=== PATIENT | female | born 1960 | race Two or more races ===

== ENCOUNTER 2016-11-30 11:35 | Inpatient (IN) | payer MEDICAID ==
[~2016-11-30] VITALS: Ht 167.6 cm; Wt 140.7 kg
[2016-11-30] VITALS (9 sets, daily range): BP systolic 89–114; BP diastolic 34–77
[2016-11-30] MEDS: InsuLIN REG 1unit/0.01ml Soln (100units/ml) SC SCH (00:59)
[2016-11-30] MEDS: ACCU-CHEK COMFORT CURVE STRIP VI SCH (00:59)
[~2016-11-30 11:35] MED LIST: ATOR20TA50 PO; CLOP75TA28 PO; FAM20T PO; GLIP-116 PO; LISI2.5T47 PO; MET25T PO
[2016-11-30 12:43] LABS: Basophils # (auto) 0 uL; DEFINITIVE VIEW TRANSMISSION; Eosinophils # (auto) 0 uL; Hemoglobin 9.6 g/dL (12.2-16.2); Lymphocytes # (auto) 0.1 uL; Mean Corpuscular Hemoglobin 26.7 pg (28.0-32.0); Monocytes # (auto) 0.1 uL; Neutrophils % (auto) 97.6 % (37.0-80.0); SUSPECT VIEW TRANSMISSION; White Blood Cell 8.2 10^3/uL (4.4-10.8)
[2016-11-30] MEDS ORDERED: SODIUM CHLORIDE 0.9% 1,000 ML IV ONE (12:45)
[2016-11-30] MEDS ORDERED: InsuLIN REG 1unit/0.01ml Soln (100units/ml) IV ONE (12:45)
[2016-11-30 12:47] LABS: Eosinophils % (auto) 0.1 % (0.0-7.0); Hematocrit 29.1 % (36.0-46.0); Lymphocytes % (auto) 1.5 % (10.0-50.0); Mean Corpuscular Hgb Conc. 33.1 g/dL (32.0-36.0); Mean Corpuscular Volume 80.8 fL (80.0-100.0); Mean Platelet Volume 7.6 fL (7.4-10.4); Monocytes % (auto) 0.8 % (0.0-12.0); Platelet Count (auto) 336 10^3/uL (140-450); Red Cell Distribution Width 15.8 % (11.6-16.0)
[2016-11-30 13:00] LABS: Albumin 2.1 g/dL (3.4-5.0); Anion Gap 10 (5-15); Aspartate Aminotransferase 18 U/L (15-37); BUN/Creatinine Ratio 16.8; Blood Urea Nitrogen 18 mg/dL (7-18); Calcium 8.1 mg/dL (8.5-10.1); Carbon Dioxide 26 mmol/L (21-32); Chloride 102 mmol/L (98-107); GFR African American 68 mL/min; GFR Non-African American 56 mL/min; Magnesium 1.8 mg/dL (1.6-2.6); Sodium 138 mmol/L (136-145); Total Protein 7.7 g/dL (6.4-8.2)
[2016-11-30 13:04] LABS: Lactic Acid w/Reflex 3.3 mmol/L (0.4-2.0)
[2016-11-30 13:04] LABS: Alkaline Phosphatase 120 U/L (45-117); Bilirubin, Total 0.7 mg/dL (0.2-1.0)
[2016-11-30 13:10] LABS: Glucose 422 mg/dL (74-106); Potassium 2.6 mmol/L (3.5-5.1)
[2016-11-30] MEDS ORDERED: ACETAMINOPHEN 325 MG TAB PO ONE (13:30)
[2016-11-30 13:32] LABS: B-Type Natriuretic Peptide 68.11 pg/mL (0-100)
[2016-11-30 13:32] LABS: REFLEX LACTIC ACID YES OR NO YES
[2016-11-30] MEDS: POTASSIUM CHL 20MEQ/100ML 100 ML IV SCH ×3 (14:33→20:06)
[2016-11-30] MEDS ORDERED: LEVOFLOXACIN 500MG 100 ML IV ONE ×2 (15:00→17:45)
[2016-11-30] MEDS ORDERED: VANCOMYCIN 1GM/250ML D5W 250 ML IV ONE (15:00)
[2016-11-30] MEDS ORDERED: SODIUM CHLORIDE 0.9% 2,000 ML IV ONE (15:45)
[2016-11-30 17:27] LABS: Urine Bilirubin Negative (Negative); Urine Ketone TRACE (Negative); Urine Nitrite Negative (Negative); Urine RBC 8 /hpf (0 - 4); Urine Urobilinogen Normal (Negative)
[2016-11-30] MEDS ORDERED: SODIUM CHLORIDE 0.9% 1,000 ML IV SCH (17:41)
[2016-11-30 17:42] LABS: Urine Blood 3+ /uL (Negative); Urine Color Brown (Yellow); Urine Glucose 4+ mg/dL (Normal)
[2016-11-30] MEDS ORDERED: DOCUSATE SOD 100 MG CAP PO PRN (17:45)
[2016-11-30] MEDS ORDERED: LORazepam 0.5 MG TAB PO PRN (17:45)
[2016-11-30] MEDS ORDERED: MORPHINE SULF INJ 2 MG/ML SYRINGE 1ML IV PRN ×2 (17:45)
[2016-11-30] MEDS ORDERED: ACETAMINOPHEN 325 MG TAB PO PRN (17:45)
[2016-11-30] MEDS ORDERED: HYDROcodone-ACET 5/325MG TAB PO PRN (17:45)
[2016-11-30] MEDS ORDERED: ONDANSETRON HCL 4 MG/2 ML VIAL IV PRN (17:45)
[2016-11-30] MEDS ORDERED: NITROGLYCERIN 0.4 MG SL TAB SL PRN (17:45)
[2016-11-30] MEDS ORDERED: DEXTROSE (50%) 50ML SYRG IV PRN (17:45)
[2016-11-30] MEDS ORDERED: ALUM & MAG HYDROX-SIMETH LIQ(MAALOX) 30 ML PO PRN (17:45)
[2016-11-30] MEDS ORDERED: CLOPIDOGREL BISULFATE 75 MG TAB PO ONE (18:00)
[2016-11-30] MEDS ORDERED: LISINOPRIL 5 MG TAB PO ONE (18:00)
[2016-11-30] MEDS: SODIUM CHLORIDE 0.9% 1,000 ML IV SCH (19:03)
[2016-11-30] MEDS: NOREPINEPHRINE BITARTRATE 250 ML IV SCH (20:48)
[2016-11-30] MEDS: METOPROLOL TARTRATE 25 MG TAB PO SCH (22:00)
[2016-11-30] MEDS: ATORVASTATIN 20 MG TAB PO SCH (22:00)
[2016-11-30] MEDS ORDERED: BACL20TA PO (22:33)
[2016-11-30] MEDS ORDERED: HYDR-3995 PO (22:33)
[2016-11-30] MEDS ORDERED: DIME240C OR (22:33)
[2016-12-01] VITALS (86 sets, daily range): BP systolic 73–160; BP diastolic 21–109
[2016-12-01] MEDS ORDERED: PNEUMOCOCCAL VACC POLYS 25 MCG/0.5 ML VIAL SUBCUT ONE (00:15)
[2016-12-01 02:19] LABS: Basophils # (auto) 0 uL; DEFINITIVE VIEW TRANSMISSION; Eosinophils # (auto) 0 uL; Eosinophils % (auto) 0.1 % (0.0-7.0); Hematocrit 39.2 % (36.0-46.0); Hemoglobin 12.7 g/dL (12.2-16.2); Lymphocytes # (auto) 0.2 uL; Lymphocytes % (auto) 2.9 % (10.0-50.0); Mean Corpuscular Hemoglobin 26.2 pg (28.0-32.0); Mean Corpuscular Hgb Conc. 32.5 g/dL (32.0-36.0); Mean Corpuscular Volume 80.5 fL (80.0-100.0); Mean Platelet Volume 7.4 fL (7.4-10.4); Monocytes # (auto) 0.4 uL; Monocytes % (auto) 5.1 % (0.0-12.0); Neutrophils # (auto) 6.6 uL; Neutrophils % (auto) 91.9 % (37.0-80.0); Platelet Count (auto) 250 10^3/uL (140-450); Red Cell Distribution Width 16.4 % (11.6-16.0); White Blood Cell 7.2 10^3/uL (4.4-10.8)
[2016-12-01 02:30] LABS: Albumin 1.8 g/dL (3.4-5.0); BUN/Creatinine Ratio 17.4; Calcium 7.8 mg/dL (8.5-10.1); Potassium 3.1 mmol/L (3.5-5.1)
[2016-12-01 02:32] LABS: Bilirubin, Total 0.3 mg/dL (0.2-1.0); Lactic Acid w/Reflex 2.7 mmol/L (0.4-2.0)
[2016-12-01 03:07] LABS: REFLEX LACTIC ACID YES OR NO YES
[2016-12-01] MEDS: SODIUM CHLORIDE 0.9% 1,000 ML IV SCH ×2 (05:00→17:00)
[2016-12-01] MEDS: InsuLIN REG 1unit/0.01ml Soln (100units/ml) SC SCH ×4 (06:44→21:38)
[2016-12-01] MEDS: ACCU-CHEK COMFORT CURVE STRIP VI SCH ×4 (07:00→21:31)
[2016-12-01] MEDS: POTASSIUM CHL 20MEQ/100ML 100 ML IV SCH ×2 (08:30→10:21)
[2016-12-01] MEDS ORDERED: PATIENTS OWN MEDICATION (Lisinopril 5 MG) PO SCH ×2 (10:00)
[2016-12-01] MEDS: METOPROLOL TARTRATE 25 MG TAB PO SCH ×2 (10:00→21:31)
[2016-12-01] MEDS: LISINOPRIL 5 MG TAB PO SCH (10:00)
[2016-12-01] MEDS: FAMOTIDINE 20 MG TAB PO SCH (10:41)
[2016-12-01] MEDS: CLOPIDOGREL BISULFATE 75 MG TAB PO SCH (10:41)
[2016-12-01] MEDS: LEVOFLOXACIN 500MG 100 ML IV SCH (10:42)
[2016-12-01] MEDS: HYDROcodone-ACET 5/325MG TAB PO PRN ×2 (12:00→21:44)
[2016-12-01] MEDS: NOREPINEPHRINE BITARTRATE 250 ML IV SCH (19:46)
[2016-12-01] MEDS: ATORVASTATIN 20 MG TAB PO SCH (21:30)
[2016-12-02] VITALS (61 sets, daily range): BP systolic 98–155; BP diastolic 50–81
[2016-12-02] MEDS: SODIUM CHLORIDE 0.9% 1,000 ML IV SCH ×3 (02:19→21:00)
[2016-12-02 04:11] LABS: Basophils # (auto) 0 uL; Basophils % (auto) 0.1 % (0.0-2.0); DEFINITIVE VIEW TRANSMISSION; Eosinophils # (auto) 0.1 uL; Eosinophils % (auto) 1.3 % (0.0-7.0); Hematocrit 23.6 % (36.0-46.0); Hemoglobin 7.8 g/dL (12.2-16.2); Lymphocytes # (auto) 0.4 uL; Lymphocytes % (auto) 9.1 % (10.0-50.0); Mean Corpuscular Hemoglobin 26.4 pg (28.0-32.0); Mean Corpuscular Hgb Conc. 32.8 g/dL (32.0-36.0); Mean Corpuscular Volume 80.6 fL (80.0-100.0); Mean Platelet Volume 7.3 fL (7.4-10.4); Monocytes # (auto) 0.4 uL; Monocytes % (auto) 8.5 % (0.0-12.0); Neutrophils # (auto) 3.8 uL; Platelet Count (auto) 286 10^3/uL (140-450); Red Cell Distribution Width 16.5 % (11.6-16.0); White Blood Cell 4.7 10^3/uL (4.4-10.8)
[2016-12-02 04:38] LABS: BUN/Creatinine Ratio 16.1; Calcium 7.7 mg/dL (8.5-10.1)
[2016-12-02 05:57] LABS: Anisocytosis Slight; Ovalocytes FEW; Platelet Estimate Adequate
[2016-12-02] MEDS: InsuLIN REG 1unit/0.01ml Soln (100units/ml) SC SCH ×4 (06:00→23:00)
[2016-12-02] MEDS: ACCU-CHEK COMFORT CURVE STRIP VI SCH ×4 (06:01→22:22)
[2016-12-02 07:04] LABS: Basophils # (auto) 0 uL; Basophils % (auto) 0.2 % (0.0-2.0); DEFINITIVE VIEW TRANSMISSION; Eosinophils # (auto) 0.1 uL; Eosinophils % (auto) 1.6 % (0.0-7.0); Hematocrit 24.2 % (36.0-46.0); Hemoglobin 7.8 g/dL (12.2-16.2); Lymphocytes # (auto) 0.5 uL; Lymphocytes % (auto) 11.3 % (10.0-50.0); Mean Corpuscular Hemoglobin 26.3 pg (28.0-32.0); Mean Corpuscular Hgb Conc. 32.1 g/dL (32.0-36.0); Mean Corpuscular Volume 81.8 fL (80.0-100.0); Mean Platelet Volume 7.3 fL (7.4-10.4); Monocytes # (auto) 0.4 uL; Monocytes % (auto) 8.7 % (0.0-12.0); Neutrophils # (auto) 3.3 uL; Neutrophils % (auto) 78.2 % (37.0-80.0); Platelet Count (auto) 242 10^3/uL (140-450); SUSPECT VIEW TRANSMISSION; White Blood Cell 4.2 10^3/uL (4.4-10.8)
[2016-12-02 07:17] LABS: INR 0.98 (0.9-1.15); Partial Thromboplastin Time 20.5 sec (22.64-33.71); Prothrombin Time 10.7 sec (9.37-12.3)
[2016-12-02 07:41] LABS: Albumin 1.7 g/dL (3.4-5.0); Calcium 7.8 mg/dL (8.5-10.1); Potassium 3.1 mmol/L (3.5-5.1)
[2016-12-02 07:43] LABS: BUN/Creatinine Ratio 13.3
[2016-12-02 07:45] LABS: Bilirubin, Total 0.3 mg/dL (0.2-1.0); Total Protein 6.6 g/dL (6.4-8.2)
[2016-12-02 08:04] LABS: Hypochromia Slight; Platelet Estimate Adequate
[2016-12-02] MEDS: LEVOFLOXACIN 500MG 100 ML IV SCH (10:43)
[2016-12-02] MEDS: FAMOTIDINE 20 MG TAB PO SCH (10:43)
[2016-12-02] MEDS: POTASSIUM CHL 20MEQ/100ML 100 ML IV SCH ×2 (10:43→12:52)
[2016-12-02] MEDS: LISINOPRIL 5 MG TAB PO SCH (10:44)
[2016-12-02] MEDS: CLOPIDOGREL BISULFATE 75 MG TAB PO SCH (10:44)
[2016-12-02] MEDS: METOPROLOL TARTRATE 25 MG TAB PO SCH ×2 (10:45→22:16)
[2016-12-02] MEDS: HYDROcodone-ACET 5/325MG TAB PO PRN (10:45)
[2016-12-02] MEDS: PRO-STAT 64 30ML PO SCH (18:14)
[2016-12-02] MEDS: ATORVASTATIN 20 MG TAB PO SCH (22:15)
[2016-12-03 05:22] VITALS: BP 140/73
[2016-12-03] MEDS: ACCU-CHEK COMFORT CURVE STRIP VI SCH ×4 (06:50→22:43)
[2016-12-03] MEDS: InsuLIN REG 1unit/0.01ml Soln (100units/ml) SC SCH ×4 (06:54→22:43)
[2016-12-03] MEDS: SODIUM CHLORIDE 0.9% 1,000 ML IV SCH ×2 (07:00→16:37)
[2016-12-03] MEDS: PRO-STAT 64 30ML PO SCH ×2 (08:21→18:00)
[2016-12-03 08:39] VITALS: BP 151/88
[2016-12-03] MEDS: POTASSIUM CHL 20MEQ/100ML 100 ML IV SCH ×2 (10:59→11:52)
[2016-12-03] MEDS: FAMOTIDINE 20 MG TAB PO SCH (11:00)
[2016-12-03] MEDS: LEVOFLOXACIN 500MG 100 ML IV SCH (11:00)
[2016-12-03] MEDS: CLOPIDOGREL BISULFATE 75 MG TAB PO SCH (11:00)
[2016-12-03] MEDS: METOPROLOL TARTRATE 25 MG TAB PO SCH ×2 (11:01→22:42)
[2016-12-03] MEDS: LISINOPRIL 5 MG TAB PO SCH (11:02)
[2016-12-03 13:31] VITALS: BP 148/77
[2016-12-03 14:20] LABS: Basophils # (auto) 0 uL; Basophils % (auto) 0.4 % (0.0-2.0); DEFINITIVE VIEW TRANSMISSION; Eosinophils # (auto) 0 uL; Hematocrit 25.6 % (36.0-46.0); Hemoglobin 8.5 g/dL (12.2-16.2); Lymphocytes # (auto) 0.4 uL; Lymphocytes % (auto) 11.3 % (10.0-50.0); Mean Corpuscular Hemoglobin 26.6 pg (28.0-32.0); Mean Corpuscular Hgb Conc. 33.1 g/dL (32.0-36.0); Mean Corpuscular Volume 80.3 fL (80.0-100.0); Mean Platelet Volume 7.3 fL (7.4-10.4); Monocytes # (auto) 0.3 uL; Monocytes % (auto) 8.8 % (0.0-12.0); Neutrophils # (auto) 2.5 uL; Neutrophils % (auto) 78.5 % (37.0-80.0); Platelet Count (auto) 265 10^3/uL (140-450); Red Cell Distribution Width 15.7 % (11.6-16.0); White Blood Cell 3.1 10^3/uL (4.4-10.8)
[2016-12-03 14:35] LABS: BUN/Creatinine Ratio 10.3; Calcium 8.2 mg/dL (8.5-10.1); Magnesium 1.9 mg/dL (1.6-2.6); Potassium 3.6 mmol/L (3.5-5.1)
[2016-12-03 14:56] LABS: INR 1.01 (0.9-1.15)
[2016-12-03] MEDS: FLUCONAZOLE 200MG/100ML 100 ML IV SCH (16:12)
[2016-12-03 17:24] VITALS: BP 156/78
[2016-12-03] MEDS: ATORVASTATIN 20 MG TAB PO SCH (22:42)
[2016-12-04 00:01] VITALS: BP 149/66
[2016-12-04] MEDS: SODIUM CHLORIDE 0.9% 1,000 ML IV SCH ×2 (02:58→12:21)
[2016-12-04 04:58] VITALS: BP 134/85
[2016-12-04 05:33] VITALS: BP 144/80
[2016-12-04] MEDS: InsuLIN REG 1unit/0.01ml Soln (100units/ml) SC SCH ×2 (06:37→11:30)
[2016-12-04] MEDS: ACCU-CHEK COMFORT CURVE STRIP VI SCH ×2 (06:37→11:30)
[2016-12-04 06:51] LABS: Basophils # (auto) 0 uL; DEFINITIVE VIEW TRANSMISSION; Eosinophils # (auto) 0 uL; Eosinophils % (auto) 1.2 % (0.0-7.0); Hematocrit 25.1 % (36.0-46.0); Hemoglobin 8.1 g/dL (12.2-16.2); Lymphocytes # (auto) 0.5 uL; Lymphocytes % (auto) 14.5 % (10.0-50.0); Mean Corpuscular Hemoglobin 26.1 pg (28.0-32.0); Mean Corpuscular Hgb Conc. 32.4 g/dL (32.0-36.0); Mean Corpuscular Volume 80.6 fL (80.0-100.0); Mean Platelet Volume 7.4 fL (7.4-10.4); Monocytes # (auto) 0.4 uL; Monocytes % (auto) 11.2 % (0.0-12.0); Neutrophils # (auto) 2.6 uL; Neutrophils % (auto) 73.1 % (37.0-80.0); Platelet Count (auto) 253 10^3/uL (140-450); Red Cell Distribution Width 15.9 % (11.6-16.0); White Blood Cell 3.5 10^3/uL (4.4-10.8)
[2016-12-04 07:02] LABS: INR 1.02 (0.9-1.15); Partial Thromboplastin Time 24.7 sec (22.64-33.71); Prothrombin Time 11.1 sec (9.37-12.3)
[2016-12-04 07:18] LABS: Magnesium 1.7 mg/dL (1.6-2.6); Potassium 3.2 mmol/L (3.5-5.1)
[2016-12-04] MEDS: PRO-STAT 64 30ML PO SCH (08:09)
[2016-12-04 09:11] VITALS: BP 157/65
[2016-12-04] MEDS: LEVOFLOXACIN 500MG 100 ML IV SCH (10:25)
[2016-12-04] MEDS: METOPROLOL TARTRATE 25 MG TAB PO SCH (10:26)
[2016-12-04] MEDS: CLOPIDOGREL BISULFATE 75 MG TAB PO SCH (10:26)
[2016-12-04] MEDS: FAMOTIDINE 20 MG TAB PO SCH (10:26)
[2016-12-04] MEDS: LISINOPRIL 5 MG TAB PO SCH (10:27)
[2016-12-04] MEDS ORDERED: LEVO500T3 PO (12:11)
[2016-12-04] MEDS ORDERED: FLUC200T50 PO (12:11)
[2016-12-04] MEDS: FLUCONAZOLE 200MG/100ML 100 ML IV SCH (12:48)
[2016-12-04 13:00] VITALS: BP 148/78
== END 2016-12-04 16:55 | disposition hospice, home (50) | DRG 720 ==
LOC: EDBD 11:35 → EDSEX 11:35 → ER 11:44 → TELE 11:45 → ICU WEST 21:40 → TELE-CENTR 12-02 15:11
PROVIDERS: ADMIT Internal Medicine; ATTEND Internal Medicine
DX: A41.9 Sepsis, unspecified organism (principal); E43 Unspecified severe protein-calorie malnutrition; G92 Toxic encephalopathy; I95.9 Hypotension, unspecified; L89.893 Pressure ulcer of other site, stage 3; L89.159 Pressure ulcer of sacral region, unspecified stage; Z68.43 Body mass index [BMI] 50.0-59.9, adult; N39.0 Urinary tract infection, site not specified; E66.01 Morbid (severe) obesity due to excess calories; E11.9 Type 2 diabetes mellitus without complications; I10 Essential (primary) hypertension; B96.20 Unspecified Escherichia coli [E. coli] as the cause of diseases classified elsewhere; R65.20 Severe sepsis without septic shock; E78.5 Hyperlipidemia, unspecified; G35 Multiple sclerosis; E87.6 Hypokalemia; K21.9 Gastro-esophageal reflux disease without esophagitis; D64.9 Anemia, unspecified; Z51.5 Encounter for palliative care; B95.4 Other streptococcus as the cause of diseases classified elsewhere; B96.1 Klebsiella pneumoniae [K. pneumoniae] as the cause of diseases classified elsewhere; B96.4 Proteus (mirabilis) (morganii) as the cause of diseases classified elsewhere; S31.819A Unspecified open wound of right buttock, initial encounter; X58.XXXA Exposure to other specified factors, initial encounter; Y93.89 Activity, other specified; Y92.89 Other specified places as the place of occurrence of the external cause; Z74.01 Bed confinement status; Z82.49 Family history of ischemic heart disease and other diseases of the circulatory system; Z83.3 Family history of diabetes mellitus; Z86.73 Personal history of transient ischemic attack (TIA), and cerebral infarction without residual deficits; Z80.9 Family history of malignant neoplasm, unspecified; Z88.1 Allergy status to other antibiotic agents; Z88.5 Allergy status to narcotic agent; Z88.0 Allergy status to penicillin; Z88.8 Allergy status to other drugs, medicaments and biological substances; Y99.8 Other external cause status; Z71.89 Other specified counseling; Z23 Encounter for immunization
CPT/HCPCS: 36415; 51702; 70450; 71010; 80048; 80053; 80307; 80320; 81001; 82962; 83036; 83605; 83735; 83880; 84484; 85018; 85025; 85379; 85610; 85730; 87040; 87077; 87081; 87086; 87186; 87205; 87493; 93005; 93970; 96361; 96365; 96367; J1450; J1815; J1956; J3480

== ENCOUNTER 2017-12-29 18:03 | Inpatient (IN) | payer MEDICAID ==
[~2017-12-29] VITALS: Ht 165.1 cm; Wt 117.7 kg
[~2017-12-29 18:03] MED LIST changes: +BACL20TA PO; +DIME240C OR; +FLUC200T50 PO; +HYDR-3995 PO; +LEVO500T21 PO
[2017-12-29 19:06] LABS: Basophils # (auto) 0 uL; Basophils % (auto) 0.3 % (0.0-2.0); Eosinophils # (auto) 0.1 uL; Eosinophils % (auto) 0.9 % (0.0-7.0); Hematocrit 33.1 % (36.0-46.0); Hemoglobin 11.3 g/dL (12.2-16.2); Lymphocytes # (auto) 0.3 uL; Lymphocytes % (auto) 4.7 % (10.0-50.0); Mean Corpuscular Hemoglobin 28.9 pg (28.0-32.0); Mean Corpuscular Hgb Conc. 34.2 g/dL (32.0-36.0); Mean Corpuscular Volume 84.3 fL (80.0-100.0); Monocytes # (auto) 0.5 uL; Neutrophils # (auto) 5.4 uL; Neutrophils % (auto) 86.1 % (37.0-80.0); Nucleated Red Blood Cells % 0.1 %; Platelet Count (auto) 292 10^3/uL (140-450); Red Blood Cells 3.92 10^6/uL (4.0-5.20); Red Cell Distribution Width 15.5 % (11.8-14.3); White Blood Cell 6.2 10^3/uL (4.4-10.8)
[2017-12-29 19:30] LABS: Alanine Aminotransferase 11 U/L (13-56); Albumin 2.9 g/dL (3.4-5.0); Alkaline Phosphatase 83 U/L (45-117); Anion Gap 7 (5-15); Aspartate Aminotransferase 10 U/L (15-37); Bilirubin, Total 0.4 mg/dL (0.2-1.0); Blood Urea Nitrogen 11 mg/dL (7-18); Calcium 8.7 mg/dL (8.5-10.1); Carbon Dioxide 24 mmol/L (21-32); Chloride 104 mmol/L (98-107); GFR African American 190 mL/min; GFR Non-African American 157 mL/min; Glucose 153 mg/dL (74-106); Potassium 3.5 mmol/L (3.5-5.1); Sodium 135 mmol/L (136-145); Total Protein 8.4 g/dL (6.4-8.2)
[2017-12-29 21:24] LABS: Urine Bacteria MOD /hpf (None Seen); Urine Blood 2+ /uL (Negative); Urine Mucus FEW (None Seen); Urine WBC 3133 /hpf (0 - 5); Urine WBC Clumps PRESENT /hpf (None Seen)
[2017-12-29] MEDS ORDERED: SODIUM CHLORIDE 0.9% 1,000 ML IVB ONE (22:19)
[2017-12-29] MEDS ORDERED: cefTRIAXone 1GM/10ml IVPUSH 10 ML IV ONE (22:30)
[2017-12-29 22:52] LABS: INR 0.98 (0.9-1.15); Prothrombin Time 10.5 sec (9.27-12.13)
[2017-12-29] MEDS ORDERED: ACETAMINOPHEN 325 MG TAB PO PRN (23:15)
[2017-12-29] MEDS ORDERED: ONDANSETRON HCL 4 MG/2 ML VIAL IV PRN (23:15)
[2017-12-29] MEDS ORDERED: HYDROcodone-ACET 7.5/325MG TAB ONE (23:33)
[2017-12-29] MEDS: HYDROcodone-ACET 7.5/325MG TAB PO PRN (23:35)
[2017-12-30] MEDS ORDERED: LORazepam 2MG/ML-1ML VIAL ONE (04:15)
[2017-12-30] MEDS ORDERED: LORazepam 2MG/ML-1ML VIAL IV ONE (04:15)
[2017-12-30 06:13] LABS: Basophils # (auto) 0 uL; Basophils % (auto) 0.4 % (0.0-2.0); Eosinophils # (auto) 0.1 uL; Eosinophils % (auto) 1.5 % (0.0-7.0); Hematocrit 26.4 % (36.0-46.0); Hemoglobin 8.9 g/dL (12.2-16.2); Lymphocytes # (auto) 0.4 uL; Lymphocytes % (auto) 10.2 % (10.0-50.0); Mean Corpuscular Hemoglobin 28.9 pg (28.0-32.0); Mean Corpuscular Hgb Conc. 33.7 g/dL (32.0-36.0); Mean Corpuscular Volume 85.8 fL (80.0-100.0); Monocytes # (auto) 0.5 uL; Monocytes % (auto) 12.1 % (0.0-12.0); Neutrophils # (auto) 2.9 uL; Neutrophils % (auto) 75.8 % (37.0-80.0); Nucleated Red Blood Cells % 0.1 %; Platelet Count (auto) 209 10^3/uL (140-450); Red Blood Cells 3.07 10^6/uL (4.0-5.20); Red Cell Distribution Width 15.2 % (11.8-14.3); White Blood Cell 3.8 10^3/uL (4.4-10.8)
[2017-12-30 06:37] LABS: Albumin 2.6 g/dL (3.4-5.0); BUN/Creatinine Ratio 27.3; Bilirubin, Total 0.5 mg/dL (0.2-1.0); Calcium 7.8 mg/dL (8.5-10.1); Potassium 3.6 mmol/L (3.5-5.1); Total Protein 7.4 g/dL (6.4-8.2)
[2017-12-30] MEDS ORDERED: DEXTROSE 50% SYRINGE 50 ML IV ONE (06:53)
[2017-12-30] MEDS: glipiZIDE 5 MG TAB PO SCH (07:00)
[2017-12-30] MEDS ORDERED: DEXTROSE (25%) 10 ML SYRG IV ONE (07:00)
[2017-12-30] MEDS: METOPROLOL TARTRATE 25 MG TAB PO SCH ×2 (09:34→22:09)
[2017-12-30] MEDS: LISINOPRIL 5 MG TAB PO SCH (09:34)
[2017-12-30] MEDS: CLOPIDOGREL BISULFATE 75 MG TAB PO SCH (09:34)
[2017-12-30] MEDS: ENOXAPARIN SOD 40 MG/0.4 ML SYRINGE SC SCH (09:46)
[2017-12-30] MEDS: FAMOTIDINE 20 MG TAB PO SCH ×2 (09:46→22:10)
[2017-12-30] MEDS ORDERED: VANCOMYCIN PER PHARMACY 0 MG IV SCH (11:45)
[2017-12-30] MEDS: VANCOMYCIN 1GM/250ML 250 ML IV SCH ×2 (14:26→22:08)
[2017-12-30 19:35] VITALS: BP 125/67
[2017-12-30 19:45] VITALS: BP 125/67
[2017-12-30] MEDS ORDERED: cefTRIAXone 1GM/10ml IVPUSH 10 ML IV SCH ×2 (22:00→23:00)
[2017-12-30] MEDS: ATORVASTATIN 20 MG TAB PO SCH (22:08)
[2017-12-30] MEDS: TECFIDERA 240 MG PO SCH (23:24)
[2017-12-31 05:33] VITALS: BP 116/71
[2017-12-31] MEDS: VANCOMYCIN 1GM/250ML 250 ML IV SCH ×2 (06:39→22:14)
[2017-12-31] MEDS: glipiZIDE 5 MG TAB PO SCH (06:39)
[2017-12-31] MEDS: HYDROcodone-ACET 7.5/325MG TAB PO PRN ×2 (06:43→18:56)
[2017-12-31 07:42] LABS: Basophils # (auto) 0 uL; Basophils % (auto) 0.5 % (0.0-2.0); Eosinophils # (auto) 0.1 uL; Hematocrit 30.9 % (36.0-46.0); Hemoglobin 10.3 g/dL (12.2-16.2); Lymphocytes # (auto) 0.5 uL; Lymphocytes % (auto) 15.6 % (10.0-50.0); Mean Corpuscular Hemoglobin 28.6 pg (28.0-32.0); Mean Corpuscular Hgb Conc. 33.5 g/dL (32.0-36.0); Mean Corpuscular Volume 85.3 fL (80.0-100.0); Monocytes # (auto) 0.4 uL; Monocytes % (auto) 12.8 % (0.0-12.0); Neutrophils # (auto) 2.2 uL; Neutrophils % (auto) 68.1 % (37.0-80.0); Platelet Count (auto) 238 10^3/uL (140-450); Red Blood Cells 3.62 10^6/uL (4.0-5.20); Red Cell Distribution Width 15.6 % (11.8-14.3); White Blood Cell 3.2 10^3/uL (4.4-10.8)
[2017-12-31 07:45] LABS: Albumin 2.6 g/dL (3.4-5.0); BUN/Creatinine Ratio 21.2; Bilirubin, Total 0.4 mg/dL (0.2-1.0); Calcium 8.5 mg/dL (8.5-10.1); Potassium 3.5 mmol/L (3.5-5.1); Total Protein 7.5 g/dL (6.4-8.2)
[2017-12-31 09:00] VITALS: BP 139/64
[2017-12-31] MEDS: METOPROLOL TARTRATE 25 MG TAB PO SCH ×2 (11:09→22:00)
[2017-12-31] MEDS: LISINOPRIL 5 MG TAB PO SCH (11:10)
[2017-12-31] MEDS: CLOPIDOGREL BISULFATE 75 MG TAB PO SCH (11:10)
[2017-12-31] MEDS: ENOXAPARIN SOD 40 MG/0.4 ML SYRINGE SC SCH (11:10)
[2017-12-31] MEDS: FAMOTIDINE 20 MG TAB PO SCH ×2 (11:10→22:15)
[2017-12-31] MEDS: TECFIDERA 240 MG PO SCH ×2 (11:29→22:15)
[2017-12-31 17:14] VITALS: BP 127/63
[2017-12-31] MEDS ORDERED: VANCOMYCIN 1GM/250ML 250 ML IV SCH (18:00)
[2017-12-31] MEDS: Boost Glucose Control 8 Ounces PO SCH ×2 (19:06→19:08)
[2017-12-31 20:00] VITALS: BP 121/58
[2017-12-31] MEDS: ATORVASTATIN 20 MG TAB PO SCH (22:15)
[2017-12-31] MEDS: cefTRIAXone 1GM/10ml IVPUSH 10 ML IV SCH (22:15)
[2018-01-01 05:30] VITALS: BP 111/55
[2018-01-01] MEDS: glipiZIDE 5 MG TAB PO SCH ×2 (05:52→18:49)
[2018-01-01 06:46] LABS: Basophils # (auto) 0 uL; Basophils % (auto) 0.4 % (0.0-2.0); Eosinophils # (auto) 0.1 uL; Eosinophils % (auto) 3.1 % (0.0-7.0); Hemoglobin 10.2 g/dL (12.2-16.2); Lymphocytes # (auto) 0.4 uL; Lymphocytes % (auto) 11.8 % (10.0-50.0); Mean Corpuscular Hemoglobin 28.4 pg (28.0-32.0); Mean Corpuscular Hgb Conc. 33.1 g/dL (32.0-36.0); Mean Corpuscular Volume 85.7 fL (80.0-100.0); Monocytes # (auto) 0.3 uL; Monocytes % (auto) 10.1 % (0.0-12.0); Neutrophils # (auto) 2.6 uL; Neutrophils % (auto) 74.6 % (37.0-80.0); Platelet Count (auto) 253 10^3/uL (140-450); Red Blood Cells 3.61 10^6/uL (4.0-5.20); Red Cell Distribution Width 15.5 % (11.8-14.3); White Blood Cell 3.5 10^3/uL (4.4-10.8)
[2018-01-01 07:02] LABS: Albumin 2.7 g/dL (3.4-5.0); Potassium 3.5 mmol/L (3.5-5.1)
[2018-01-01 07:10] LABS: BUN/Creatinine Ratio 37.8; Calcium 8.3 mg/dL (8.5-10.1); Total Protein 7.7 g/dL (6.4-8.2)
[2018-01-01 07:12] LABS: Bilirubin, Total 0.9 mg/dL (0.2-1.0)
[2018-01-01 09:00] VITALS: BP 141/73
[2018-01-01] MEDS: VANCOMYCIN 1GM/250ML 250 ML IV SCH ×2 (10:49→22:47)
[2018-01-01] MEDS: TECFIDERA 240 MG PO SCH ×2 (10:49→22:03)
[2018-01-01] MEDS: LISINOPRIL 5 MG TAB PO SCH (10:50)
[2018-01-01] MEDS: CLOPIDOGREL BISULFATE 75 MG TAB PO SCH (10:50)
[2018-01-01] MEDS: FAMOTIDINE 20 MG TAB PO SCH ×2 (10:50→22:04)
[2018-01-01] MEDS: ENOXAPARIN SOD 40 MG/0.4 ML SYRINGE SC SCH (10:51)
[2018-01-01] MEDS: METOPROLOL TARTRATE 25 MG TAB PO SCH ×2 (10:51→22:00)
[2018-01-01] MEDS: Boost Glucose Control 8 Ounces PO SCH ×3 (10:51→18:50)
[2018-01-01 13:00] VITALS: BP 121/72
[2018-01-01] MEDS ORDERED: FENT75DI2 TD (14:54)
[2018-01-01] MEDS: fentaNYL 100MCG/HR 100 MCG/HR PAT TD SCH (15:24)
[2018-01-01 18:03] VITALS: BP 137/75
[2018-01-01 22:00] VITALS: BP 100/55
[2018-01-01] MEDS: cefTRIAXone 1GM/10ml IVPUSH 10 ML IV SCH (22:03)
[2018-01-01] MEDS: ATORVASTATIN 20 MG TAB PO SCH (22:04)
[2018-01-02 05:00] VITALS: BP 109/54
[2018-01-02 06:33] LABS: Basophils # (auto) 0 uL; Basophils % (auto) 0.4 % (0.0-2.0); Eosinophils # (auto) 0.1 uL; Eosinophils % (auto) 2.7 % (0.0-7.0); Hematocrit 29.7 % (36.0-46.0); Lymphocytes # (auto) 0.4 uL; Lymphocytes % (auto) 9.8 % (10.0-50.0); Mean Corpuscular Hemoglobin 28.5 pg (28.0-32.0); Mean Corpuscular Hgb Conc. 33.8 g/dL (32.0-36.0); Mean Corpuscular Volume 84.3 fL (80.0-100.0); Monocytes # (auto) 0.4 uL; Monocytes % (auto) 10.1 % (0.0-12.0); Neutrophils # (auto) 2.9 uL; Platelet Count (auto) 235 10^3/uL (140-450); Red Blood Cells 3.52 10^6/uL (4.0-5.20); Red Cell Distribution Width 15.6 % (11.8-14.3); White Blood Cell 3.8 10^3/uL (4.4-10.8)
[2018-01-02] MEDS: glipiZIDE 5 MG TAB PO SCH ×2 (06:48→18:24)
[2018-01-02 06:50] LABS: Albumin 2.7 g/dL (3.4-5.0); BUN/Creatinine Ratio 27.5; Calcium 8.3 mg/dL (8.5-10.1); Potassium 3.8 mmol/L (3.5-5.1)
[2018-01-02 06:53] LABS: Bilirubin, Total 0.4 mg/dL (0.2-1.0); Total Protein 7.6 g/dL (6.4-8.2)
[2018-01-02] MEDS: Boost Glucose Control 8 Ounces PO SCH ×3 (08:00→18:04)
[2018-01-02 09:00] VITALS: BP 102/53
[2018-01-02] MEDS: VANCOMYCIN 1GM/250ML 250 ML IV SCH (09:59)
[2018-01-02] MEDS: PRO-STAT 64 30ML PO SCH ×2 (10:00→21:58)
[2018-01-02] MEDS: LISINOPRIL 5 MG TAB PO SCH (10:00)
[2018-01-02] MEDS: ENOXAPARIN SOD 40 MG/0.4 ML SYRINGE SC SCH (10:00)
[2018-01-02] MEDS: METOPROLOL TARTRATE 25 MG TAB PO SCH ×3 (10:00→22:00)
[2018-01-02] MEDS: CLOPIDOGREL BISULFATE 75 MG TAB PO SCH (10:00)
[2018-01-02] MEDS: FAMOTIDINE 20 MG TAB PO SCH ×2 (10:01→21:58)
[2018-01-02] MEDS: MULTIPLE VITAMINS W/ MINERALS TAB PO SCH (10:01)
[2018-01-02] MEDS: ASCORBIC ACID 500 MG TAB PO SCH ×2 (10:01→21:58)
[2018-01-02] MEDS: TECFIDERA 240 MG PO SCH ×2 (10:04→21:57)
[2018-01-02 13:00] VITALS: BP 118/59
[2018-01-02 17:00] VITALS: BP 113/61
[2018-01-02] MEDS ORDERED: LIDOCAINE 1% (LOCAL ANESTH.) PF 5ml SDV ID ONE (17:00)
[2018-01-02] MEDS: CEFEPIME HYDROCHLORIDE 2 GM in SODIUM CHL 0.9% 50 ML IV SCH (21:56)
[2018-01-02] MEDS: ATORVASTATIN 20 MG TAB PO SCH (21:57)
[2018-01-02] MEDS: SODIUM CHLOR 0.9% PF (SALINE LOCK) 10ML VIAL/SYR IV SCH (21:57)
[2018-01-02 22:00] VITALS: BP 105/58
[2018-01-03] MEDS ORDERED: IBUPROFEN 600 MG TAB PO PRN (02:00)
[2018-01-03 05:00] VITALS: BP 113/56
[2018-01-03] MEDS: glipiZIDE 5 MG TAB PO SCH ×2 (06:44→18:00)
[2018-01-03 07:13] LABS: Basophils # (auto) 0 uL; Basophils % (auto) 0.5 % (0.0-2.0); Eosinophils # (auto) 0.1 uL; Eosinophils % (auto) 3.8 % (0.0-7.0); Hematocrit 29.7 % (36.0-46.0); Hemoglobin 10.1 g/dL (12.2-16.2); Lymphocytes # (auto) 0.4 uL; Lymphocytes % (auto) 11.8 % (10.0-50.0); Mean Corpuscular Hemoglobin 28.9 pg (28.0-32.0); Mean Corpuscular Hgb Conc. 34.1 g/dL (32.0-36.0); Monocytes # (auto) 0.4 uL; Monocytes % (auto) 10.8 % (0.0-12.0); Neutrophils # (auto) 2.4 uL; Neutrophils % (auto) 73.1 % (37.0-80.0); Nucleated Red Blood Cells % 0.1 %; Platelet Count (auto) 238 10^3/uL (140-450); Red Cell Distribution Width 15.3 % (11.8-14.3); White Blood Cell 3.3 10^3/uL (4.4-10.8)
[2018-01-03 07:22] LABS: BUN/Creatinine Ratio 32.4; Calcium 8.5 mg/dL (8.5-10.1); Potassium 3.4 mmol/L (3.5-5.1)
[2018-01-03 08:00] VITALS: BP 107/52
[2018-01-03] MEDS: CEFEPIME HYDROCHLORIDE 2 GM in SODIUM CHL 0.9% 50 ML IV SCH ×2 (10:54→21:47)
[2018-01-03] MEDS: Boost Glucose Control 8 Ounces PO SCH ×3 (10:54→18:00)
[2018-01-03] MEDS: METOPROLOL TARTRATE 25 MG TAB PO SCH (10:55)
[2018-01-03] MEDS: SODIUM CHLOR 0.9% PF (SALINE LOCK) 10ML VIAL/SYR IV SCH ×2 (10:55→21:50)
[2018-01-03] MEDS: TECFIDERA 240 MG PO SCH ×2 (10:55→21:50)
[2018-01-03] MEDS: CLOPIDOGREL BISULFATE 75 MG TAB PO SCH (10:56)
[2018-01-03] MEDS: PRO-STAT 64 30ML PO SCH ×2 (10:56→22:00)
[2018-01-03] MEDS: MULTIPLE VITAMINS W/ MINERALS TAB PO SCH (10:56)
[2018-01-03] MEDS: ASCORBIC ACID 500 MG TAB PO SCH ×2 (10:56→21:48)
[2018-01-03] MEDS: FAMOTIDINE 20 MG TAB PO SCH ×2 (10:56→21:47)
[2018-01-03] MEDS: LISINOPRIL 5 MG TAB PO SCH (10:57)
[2018-01-03] MEDS: ENOXAPARIN SOD 40 MG/0.4 ML SYRINGE SC SCH (10:57)
[2018-01-03] MEDS: fentaNYL 100MCG/HR 100 MCG/HR PAT TD SCH (18:33)
[2018-01-03 20:00] VITALS: BP 101/59
[2018-01-03] MEDS: ATORVASTATIN 20 MG TAB PO SCH (21:47)
[2018-01-03 22:10] VITALS: BP 101/59
[2018-01-04] MEDS: METOPROLOL TARTRATE 25 MG TAB PO SCH ×3 (00:11→22:00)
[2018-01-04] MEDS: glipiZIDE 5 MG TAB PO SCH ×2 (06:29→18:54)
[2018-01-04 06:39] VITALS: BP 99/55
[2018-01-04 07:45] LABS: Basophils # (auto) 0 uL; Basophils % (auto) 0.7 % (0.0-2.0); Eosinophils # (auto) 0.1 uL; Eosinophils % (auto) 3.9 % (0.0-7.0); Hematocrit 29.4 % (36.0-46.0); Hemoglobin 9.8 g/dL (12.2-16.2); Lymphocytes # (auto) 0.4 uL; Lymphocytes % (auto) 14.4 % (10.0-50.0); Mean Corpuscular Hemoglobin 28.4 pg (28.0-32.0); Mean Corpuscular Hgb Conc. 33.3 g/dL (32.0-36.0); Mean Corpuscular Volume 85.2 fL (80.0-100.0); Monocytes # (auto) 0.3 uL; Monocytes % (auto) 11.2 % (0.0-12.0); Neutrophils # (auto) 2.1 uL; Neutrophils % (auto) 69.8 % (37.0-80.0); Nucleated Red Blood Cells % 0.1 %; Platelet Count (auto) 232 10^3/uL (140-450); Red Blood Cells 3.45 10^6/uL (4.0-5.20); Red Cell Distribution Width 15.2 % (11.8-14.3); White Blood Cell 2.9 10^3/uL (4.4-10.8)
[2018-01-04 08:00] VITALS: BP 113/52
[2018-01-04] MEDS: Boost Glucose Control 8 Ounces PO SCH ×3 (08:00→18:00)
[2018-01-04 08:22] LABS: BUN/Creatinine Ratio 41.2; Calcium 8.3 mg/dL (8.5-10.1); Potassium 3.7 mmol/L (3.5-5.1)
[2018-01-04 09:06] VITALS: BP 113/52
[2018-01-04] MEDS: PRO-STAT 64 30ML PO SCH ×2 (10:00→22:00)
[2018-01-04] MEDS: SODIUM CHLOR 0.9% PF (SALINE LOCK) 10ML VIAL/SYR IV SCH ×2 (10:00→22:00)
[2018-01-04] MEDS: CLOPIDOGREL BISULFATE 75 MG TAB PO SCH (10:44)
[2018-01-04] MEDS: FAMOTIDINE 20 MG TAB PO SCH ×2 (10:45→22:00)
[2018-01-04] MEDS: TECFIDERA 240 MG PO SCH ×2 (10:45→22:00)
[2018-01-04] MEDS: ASCORBIC ACID 500 MG TAB PO SCH ×2 (10:45→22:00)
[2018-01-04] MEDS: ENOXAPARIN SOD 40 MG/0.4 ML SYRINGE SC SCH (10:46)
[2018-01-04] MEDS: MULTIPLE VITAMINS W/ MINERALS TAB PO SCH (10:46)
[2018-01-04] MEDS: LISINOPRIL 5 MG TAB PO SCH (10:48)
[2018-01-04] MEDS: CEFEPIME HYDROCHLORIDE 2 GM in SODIUM CHL 0.9% 50 ML IV SCH ×2 (10:48→22:00)
[2018-01-04 14:23] VITALS: BP 111/53
[2018-01-04 18:02] VITALS: BP 113/60
[2018-01-04 22:00] VITALS: BP 101/49
[2018-01-04] MEDS: ATORVASTATIN 20 MG TAB PO SCH (22:00)
[2018-01-05 05:00] VITALS: BP 111/48
[2018-01-05] MEDS: glipiZIDE 5 MG TAB PO SCH ×2 (06:33→18:51)
[2018-01-05 07:56] LABS: Basophils # (auto) 0 uL; Basophils % (auto) 0.6 % (0.0-2.0); Eosinophils # (auto) 0.1 uL; Eosinophils % (auto) 3.7 % (0.0-7.0); Hematocrit 30.6 % (36.0-46.0); Hemoglobin 10.3 g/dL (12.2-16.2); Lymphocytes # (auto) 0.5 uL; Lymphocytes % (auto) 14.9 % (10.0-50.0); Mean Corpuscular Hemoglobin 28.6 pg (28.0-32.0); Mean Corpuscular Hgb Conc. 33.7 g/dL (32.0-36.0); Mean Corpuscular Volume 84.9 fL (80.0-100.0); Monocytes # (auto) 0.3 uL; Monocytes % (auto) 9.9 % (0.0-12.0); Neutrophils # (auto) 2.4 uL; Neutrophils % (auto) 70.9 % (37.0-80.0); Platelet Count (auto) 241 10^3/uL (140-450); Red Cell Distribution Width 15.3 % (11.8-14.3); White Blood Cell 3.4 10^3/uL (4.4-10.8)
[2018-01-05 08:11] LABS: Calcium 8.4 mg/dL (8.5-10.1); Potassium 3.9 mmol/L (3.5-5.1)
[2018-01-05] MEDS: Boost Glucose Control 8 Ounces PO SCH ×3 (08:23→18:51)
[2018-01-05 09:00] VITALS: BP 100/65
[2018-01-05] MEDS: CEFEPIME HYDROCHLORIDE 2 GM in SODIUM CHL 0.9% 50 ML IV SCH ×2 (10:15→22:00)
[2018-01-05] MEDS: TECFIDERA 240 MG PO SCH ×2 (10:15→22:00)
[2018-01-05] MEDS: SODIUM CHLOR 0.9% PF (SALINE LOCK) 10ML VIAL/SYR IV SCH ×2 (10:15→22:00)
[2018-01-05] MEDS: MULTIPLE VITAMINS W/ MINERALS TAB PO SCH (10:16)
[2018-01-05] MEDS: ASCORBIC ACID 500 MG TAB PO SCH ×2 (10:16→22:00)
[2018-01-05] MEDS: CLOPIDOGREL BISULFATE 75 MG TAB PO SCH (10:16)
[2018-01-05] MEDS: FAMOTIDINE 20 MG TAB PO SCH ×2 (10:16→22:00)
[2018-01-05] MEDS: PRO-STAT 64 30ML PO SCH ×2 (10:16→22:00)
[2018-01-05] MEDS: METOPROLOL TARTRATE 25 MG TAB PO SCH ×2 (10:16→22:00)
[2018-01-05] MEDS: ENOXAPARIN SOD 40 MG/0.4 ML SYRINGE SC SCH (10:17)
[2018-01-05] MEDS: LISINOPRIL 5 MG TAB PO SCH (10:17)
[2018-01-05 12:30] VITALS: BP 118/62
[2018-01-05 17:19] VITALS: BP 116/55
[2018-01-05 20:00] VITALS: BP 118/62
[2018-01-05 22:00] VITALS: BP 106/64
[2018-01-05] MEDS: ATORVASTATIN 20 MG TAB PO SCH (22:00)
[2018-01-06 05:00] VITALS: BP 112/64
[2018-01-06] MEDS: glipiZIDE 5 MG TAB PO SCH (06:29)
[2018-01-06 06:57] LABS: Basophils # (auto) 0 uL; Basophils % (auto) 0.5 % (0.0-2.0); Eosinophils # (auto) 0.1 uL; Eosinophils % (auto) 2.1 % (0.0-7.0); Hemoglobin 10.4 g/dL (12.2-16.2); Lymphocytes # (auto) 0.4 uL; Lymphocytes % (auto) 12.1 % (10.0-50.0); Mean Corpuscular Hemoglobin 28.2 pg (28.0-32.0); Mean Corpuscular Hgb Conc. 33.6 g/dL (32.0-36.0); Mean Corpuscular Volume 83.9 fL (80.0-100.0); Monocytes # (auto) 0.3 uL; Monocytes % (auto) 9.3 % (0.0-12.0); Neutrophils # (auto) 2.6 uL; Platelet Count (auto) 256 10^3/uL (140-450); Red Cell Distribution Width 15.4 % (11.8-14.3); White Blood Cell 3.5 10^3/uL (4.4-10.8)
[2018-01-06 07:05] LABS: BUN/Creatinine Ratio 46.7; Calcium 8.6 mg/dL (8.5-10.1); Potassium 3.7 mmol/L (3.5-5.1)
[2018-01-06 08:00] VITALS: BP 112/51
[2018-01-06] MEDS: Boost Glucose Control 8 Ounces PO SCH ×2 (08:00→12:00)
[2018-01-06 08:30] VITALS: BP 112/51
[2018-01-06] MEDS: FAMOTIDINE 20 MG TAB PO SCH (09:21)
[2018-01-06] MEDS: ENOXAPARIN SOD 40 MG/0.4 ML SYRINGE SC SCH (09:21)
[2018-01-06] MEDS: CLOPIDOGREL BISULFATE 75 MG TAB PO SCH (09:21)
[2018-01-06] MEDS: ASCORBIC ACID 500 MG TAB PO SCH (09:21)
[2018-01-06] MEDS: MULTIPLE VITAMINS W/ MINERALS TAB PO SCH (09:21)
[2018-01-06] MEDS: PRO-STAT 64 30ML PO SCH (09:22)
[2018-01-06] MEDS: METOPROLOL TARTRATE 25 MG TAB PO SCH (09:22)
[2018-01-06] MEDS: LISINOPRIL 5 MG TAB PO SCH (09:22)
[2018-01-06] MEDS: TECFIDERA 240 MG PO SCH (09:23)
[2018-01-06] MEDS: SODIUM CHLOR 0.9% PF (SALINE LOCK) 10ML VIAL/SYR IV SCH (09:23)
[2018-01-06] MEDS: CEFEPIME HYDROCHLORIDE 2 GM in SODIUM CHL 0.9% 50 ML IV SCH (09:25)
[2018-01-06 13:00] VITALS: BP 124/56
== END 2018-01-06 15:30 | disposition home health service (06) | DRG 463 ==
LOC: ER 18:03 → EDBD 18:03 → OVERFLOW 18:04 → CENTRAL 12-30 19:37
PROVIDERS: ADMIT Nurse Practitioner; ATTEND Internal Medicine
PROC: 06H033Z Insertion of Infusion Device into Inferior Vena Cava, Percutaneous Approach (ICD-10-PCS; principal; 2018-01-02)
DX: N39.0 Urinary tract infection, site not specified (principal); G92 Toxic encephalopathy; L89.894 Pressure ulcer of other site, stage 4; E44.0 Moderate protein-calorie malnutrition; F03.90 Unspecified dementia, unspecified severity, without behavioral disturbance, psychotic disturbance, mood disturbance, and anxiety; L89.153 Pressure ulcer of sacral region, stage 3; E11.9 Type 2 diabetes mellitus without complications; B96.5 Pseudomonas (aeruginosa) (mallei) (pseudomallei) as the cause of diseases classified elsewhere; G82.20 Paraplegia, unspecified; D63.8 Anemia in other chronic diseases classified elsewhere; E66.01 Morbid (severe) obesity due to excess calories; G35 Multiple sclerosis; Z86.73 Personal history of transient ischemic attack (TIA), and cerebral infarction without residual deficits; E87.1 Hypo-osmolality and hyponatremia; K21.9 Gastro-esophageal reflux disease without esophagitis; I10 Essential (primary) hypertension; F41.9 Anxiety disorder, unspecified; E78.5 Hyperlipidemia, unspecified; G89.4 Chronic pain syndrome; Z74.01 Bed confinement status; Z79.891 Long term (current) use of opiate analgesic; Z82.49 Family history of ischemic heart disease and other diseases of the circulatory system; Z83.3 Family history of diabetes mellitus; Z80.9 Family history of malignant neoplasm, unspecified; Z88.1 Allergy status to other antibiotic agents; Z88.0 Allergy status to penicillin; Z88.8 Allergy status to other drugs, medicaments and biological substances; Z68.41 Body mass index [BMI] 40.0-44.9, adult; E88.09 Other disorders of plasma-protein metabolism, not elsewhere classified
CPT/HCPCS: 36415; 36569; 71045; 80048; 80053; 80202; 81001; 82962; 83036; 83605; 83735; 84484; 85025; 85610; 85730; 87040; 87077; 87086; 87186; 87205; 93005; 94761; 96361; 96365; 96372; 96375

== ENCOUNTER 2018-03-20 14:15 | Inpatient (IN) | payer MEDICAID ==
[~2018-03-20] VITALS: Ht 157.5 cm; Wt 135.5 kg
[~2018-03-20 14:15] MED LIST changes: +FENT75DI2 TD; -LEVO500T21 PO
[2018-03-20] MEDS ORDERED: SODIUM CHLORIDE 0.9% 1,000 ML IV ONE (14:34)
[2018-03-20] MEDS ORDERED: ERTAPENEM SOD INJ 1 GM in SODIUM CHL 0.9% 50 ML IV ONE (14:45)
[2018-03-20 15:52] LABS: Basophils # (auto) 0 uL; Basophils % (auto) 0.2 % (0.0-2.0); Eosinophils # (auto) 0.1 uL; Eosinophils % (auto) 2.3 % (0.0-7.0); Lymphocytes # (auto) 0.4 uL; Lymphocytes % (auto) 8.7 % (10.0-50.0); Mean Corpuscular Hemoglobin 29.6 pg (28.0-32.0); Mean Corpuscular Hgb Conc. 33.4 g/dL (32.0-36.0); Mean Corpuscular Volume 88.6 fL (80.0-100.0); Monocytes # (auto) 0.3 uL; Neutrophils # (auto) 3.7 uL; Neutrophils % (auto) 81.8 % (37.0-80.0); Nucleated Red Blood Cells % 0.1 %; Platelet Count (auto) 233 10^3/uL (140-450); Red Blood Cells 4.07 10^6/uL (4.0-5.20); White Blood Cell 4.5 10^3/uL (4.4-10.8)
[2018-03-20 16:10] LABS: Alanine Aminotransferase 13 U/L (13-56); Albumin 3.1 g/dL (3.4-5.0); Alkaline Phosphatase 80 U/L (45-117); Anion Gap 5 (5-15); Aspartate Aminotransferase 10 U/L (15-37); BUN/Creatinine Ratio 32.6; Bilirubin, Total 0.4 mg/dL (0.2-1.0); Blood Urea Nitrogen 14 mg/dL (7-18); Calcium 8.3 mg/dL (8.5-10.1); Carbon Dioxide 26 mmol/L (21-32); Chloride 106 mmol/L (98-107); GFR African American 195 mL/min; GFR Non-African American 161 mL/min; Glucose 123 mg/dL (74-106); Potassium 3.7 mmol/L (3.5-5.1); Sodium 137 mmol/L (136-145)
[2018-03-20 16:12] LABS: INR 0.96 (0.9-1.15); Partial Thromboplastin Time 30.3 sec (23.78-33.04); Prothrombin Time 10.3 sec (9.27-12.13)
[2018-03-20] MEDS ORDERED: ONDANSETRON HCL 4 MG/2 ML VIAL IV ONE (18:30)
[2018-03-20] MEDS ORDERED: MORPHINE SULF INJ 2 MG/ML SYRINGE 1ML IV ONE (18:30)
[2018-03-20 19:52] LABS: Urine Bacteria MANY /hpf (None Seen); Urine Blood 2+ /uL (Negative); Urine Mucus MANY (None Seen); Urine WBC 394 /hpf (0 - 5); Urine WBC Clumps PRESENT /hpf (None Seen)
[2018-03-20 20:04] LABS: Urine Specific Gravity 1.025 (1.001-1.035)
[2018-03-20] MEDS ORDERED: ACETAMINOPHEN 325 MG TAB PO PRN (20:45)
[2018-03-20] MEDS ORDERED: ONDANSETRON HCL 4 MG/2 ML VIAL IV PRN (20:45)
[2018-03-20] MEDS: SODIUM CHLORIDE 0.9% 1,000 ML IV SCH (20:51)
[2018-03-20] MEDS: HYDROcodone-ACET 5/325MG TAB PO PRN (21:55)
[2018-03-20] MEDS: FAMOTIDINE 20 MG TAB PO SCH (22:07)
[2018-03-20] MEDS: METOPROLOL TARTRATE 25 MG TAB PO SCH (22:07)
[2018-03-20] MEDS: ATORVASTATIN 20 MG TAB PO SCH (22:07)
[2018-03-20] MEDS: DONEPEZIL HYDROCHLORIDE 5 MG TAB PO SCH (22:18)
[2018-03-21] VITALS (8 sets, daily range): BP systolic 94–120; BP diastolic 42–69
[2018-03-21] MEDS: glipiZIDE 5 MG TAB PO SCH ×2 (06:04→17:00)
[2018-03-21 06:27] LABS: Basophils # (auto) 0 uL; Basophils % (auto) 0.3 % (0.0-2.0); Eosinophils # (auto) 0.1 uL; Eosinophils % (auto) 3.8 % (0.0-7.0); Hematocrit 33.7 % (36.0-46.0); Hemoglobin 11.4 g/dL (12.2-16.2); Lymphocytes # (auto) 0.4 uL; Lymphocytes % (auto) 15.4 % (10.0-50.0); Mean Corpuscular Hemoglobin 29.8 pg (28.0-32.0); Mean Corpuscular Hgb Conc. 33.8 g/dL (32.0-36.0); Mean Corpuscular Volume 88.3 fL (80.0-100.0); Monocytes # (auto) 0.4 uL; Monocytes % (auto) 13.9 % (0.0-12.0); Neutrophils # (auto) 1.9 uL; Neutrophils % (auto) 66.6 % (37.0-80.0); Nucleated Red Blood Cells % 0.1 %; Platelet Count (auto) 216 10^3/uL (140-450); Red Blood Cells 3.82 10^6/uL (4.0-5.20); Red Cell Distribution Width 15.2 % (11.8-14.3); White Blood Cell 2.8 10^3/uL (4.4-10.8)
[2018-03-21 06:44] LABS: Albumin 2.9 g/dL (3.4-5.0); BUN/Creatinine Ratio 23.8; Bilirubin, Total 0.5 mg/dL (0.2-1.0); Calcium 8.5 mg/dL (8.5-10.1); Potassium 3.6 mmol/L (3.5-5.1); Total Protein 7.4 g/dL (6.4-8.2)
[2018-03-21] MEDS ORDERED: FUROSEMIDE 20 MG TAB PO SCH (10:00)
[2018-03-21] MEDS: ENOXAPARIN SOD 40 MG/0.4 ML SYRINGE SC SCH (10:47)
[2018-03-21] MEDS: ERTAPENEM SOD INJ 1 GM in SODIUM CHL 0.9% 50 ML IV SCH (10:47)
[2018-03-21] MEDS: LISINOPRIL 5 MG TAB PO SCH (10:48)
[2018-03-21] MEDS: FAMOTIDINE 20 MG TAB PO SCH ×2 (10:48→21:47)
[2018-03-21] MEDS: CLOPIDOGREL BISULFATE 75 MG TAB PO SCH (10:48)
[2018-03-21] MEDS: METOPROLOL TARTRATE 25 MG TAB PO SCH ×2 (10:49→22:00)
[2018-03-21] MEDS: SODIUM CHLORIDE 0.9% 1,000 ML IV SCH ×2 (10:53→17:09)
[2018-03-21] MEDS: HYDROcodone-ACET 5/325MG TAB PO PRN (14:06)
[2018-03-21] MEDS ORDERED: DEXTROSE (50%) 50ML SYRG IV PRN (15:00)
[2018-03-21] MEDS: InsuLIN REG 1unit/0.01ml Soln (100units/ml) SC SCH ×2 (17:00→22:00)
[2018-03-21] MEDS: ACCU-CHEK COMFORT CURVE STRIP VI SCH ×2 (17:08→22:39)
[2018-03-21] MEDS: ASCORBIC ACID 500 MG TAB PO SCH (21:47)
[2018-03-21] MEDS: DONEPEZIL HYDROCHLORIDE 5 MG TAB PO SCH (21:47)
[2018-03-21] MEDS: ATORVASTATIN 20 MG TAB PO SCH (21:47)
[2018-03-21] MEDS: MULTIPLE VITAMINS W/ MINERALS TAB PO SCH (21:47)
[2018-03-22] VITALS (7 sets, daily range): BP systolic 107–149; BP diastolic 47–66
[2018-03-22] MEDS ORDERED: DIME240C PO (02:24)
[2018-03-22 05:59] LABS: Basophils # (auto) 0 uL; Basophils % (auto) 0.6 % (0.0-2.0); Eosinophils # (auto) 0.1 uL; Eosinophils % (auto) 4.1 % (0.0-7.0); Hematocrit 34.8 % (36.0-46.0); Hemoglobin 11.5 g/dL (12.2-16.2); Lymphocytes # (auto) 0.4 uL; Lymphocytes % (auto) 13.2 % (10.0-50.0); Mean Corpuscular Hemoglobin 29.8 pg (28.0-32.0); Mean Corpuscular Volume 90.2 fL (80.0-100.0); Monocytes # (auto) 0.4 uL; Monocytes % (auto) 11.5 % (0.0-12.0); Neutrophils # (auto) 2.3 uL; Neutrophils % (auto) 70.6 % (37.0-80.0); Nucleated Red Blood Cells % 0.1 %; Platelet Count (auto) 199 10^3/uL (140-450); Red Blood Cells 3.86 10^6/uL (4.0-5.20); Red Cell Distribution Width 14.7 % (11.8-14.3); White Blood Cell 3.2 10^3/uL (4.4-10.8)
[2018-03-22] MEDS: ACCU-CHEK COMFORT CURVE STRIP VI SCH ×4 (06:08→21:51)
[2018-03-22] MEDS: InsuLIN REG 1unit/0.01ml Soln (100units/ml) SC SCH ×4 (06:08→21:51)
[2018-03-22] MEDS: glipiZIDE 5 MG TAB PO SCH ×2 (06:09→17:45)
[2018-03-22 06:14] LABS: BUN/Creatinine Ratio 33.3; Calcium 8.5 mg/dL (8.5-10.1); Magnesium 2.5 mg/dL (1.6-2.6); Potassium 3.7 mmol/L (3.5-5.1)
[2018-03-22] MEDS: SODIUM CHLORIDE 0.9% 1,000 ML IV SCH (07:40)
[2018-03-22] MEDS: ERTAPENEM SOD INJ 1 GM in SODIUM CHL 0.9% 50 ML IV SCH (10:17)
[2018-03-22] MEDS: METOPROLOL TARTRATE 25 MG TAB PO SCH ×2 (10:18→21:43)
[2018-03-22] MEDS: MULTIPLE VITAMINS W/ MINERALS TAB PO SCH ×2 (10:18→21:42)
[2018-03-22] MEDS: FAMOTIDINE 20 MG TAB PO SCH ×2 (10:18→21:41)
[2018-03-22] MEDS: ASCORBIC ACID 500 MG TAB PO SCH ×2 (10:19→21:41)
[2018-03-22] MEDS: CLOPIDOGREL BISULFATE 75 MG TAB PO SCH (10:19)
[2018-03-22] MEDS: LISINOPRIL 5 MG TAB PO SCH (10:19)
[2018-03-22] MEDS: ENOXAPARIN SOD 40 MG/0.4 ML SYRINGE SC SCH (10:20)
[2018-03-22] MEDS: HYDROcodone-ACET 5/325MG TAB PO PRN (20:17)
[2018-03-22] MEDS: TECFIDERA 240 MG PO SCH (21:38)
[2018-03-22] MEDS: ATORVASTATIN 20 MG TAB PO SCH (21:43)
[2018-03-22] MEDS: DONEPEZIL HYDROCHLORIDE 5 MG TAB PO SCH (21:43)
[2018-03-23] MEDS: SODIUM CHLORIDE 0.9% 1,000 ML IV SCH ×2 (01:10→17:16)
[2018-03-23 04:48] VITALS: BP 101/57
[2018-03-23] MEDS: InsuLIN REG 1unit/0.01ml Soln (100units/ml) SC SCH ×4 (07:00→21:51)
[2018-03-23] MEDS: ACCU-CHEK COMFORT CURVE STRIP VI SCH ×4 (07:14→21:50)
[2018-03-23] MEDS: glipiZIDE 5 MG TAB PO SCH ×2 (07:16→17:00)
[2018-03-23] MEDS: HYDROcodone-ACET 5/325MG TAB PO PRN (07:39)
[2018-03-23 09:00] VITALS: BP 116/59
[2018-03-23] MEDS: FAMOTIDINE 20 MG TAB PO SCH ×2 (10:00→22:53)
[2018-03-23] MEDS: ERTAPENEM SOD INJ 1 GM in SODIUM CHL 0.9% 50 ML IV SCH (10:58)
[2018-03-23] MEDS: TECFIDERA 240 MG PO SCH ×2 (10:58→21:52)
[2018-03-23] MEDS: METOPROLOL TARTRATE 25 MG TAB PO SCH ×2 (10:59→21:43)
[2018-03-23] MEDS: MULTIPLE VITAMINS W/ MINERALS TAB PO SCH ×2 (10:59→21:43)
[2018-03-23] MEDS: CLOPIDOGREL BISULFATE 75 MG TAB PO SCH (10:59)
[2018-03-23] MEDS: ASCORBIC ACID 500 MG TAB PO SCH ×2 (11:00→21:44)
[2018-03-23] MEDS: LISINOPRIL 5 MG TAB PO SCH (11:00)
[2018-03-23] MEDS: ENOXAPARIN SOD 40 MG/0.4 ML SYRINGE SC SCH ×2 (11:01→21:46)
[2018-03-23 11:17] LABS: Basophils # (auto) 0 uL; Basophils % (auto) 0.5 % (0.0-2.0); Eosinophils # (auto) 0 uL; Eosinophils % (auto) 1.5 % (0.0-7.0); Hematocrit 32.6 % (36.0-46.0); Hemoglobin 10.9 g/dL (12.2-16.2); Lymphocytes # (auto) 0.4 uL; Lymphocytes % (auto) 13.2 % (10.0-50.0); Mean Corpuscular Hemoglobin 29.4 pg (28.0-32.0); Mean Corpuscular Hgb Conc. 33.5 g/dL (32.0-36.0); Mean Corpuscular Volume 87.9 fL (80.0-100.0); Monocytes # (auto) 0.3 uL; Monocytes % (auto) 8.3 % (0.0-12.0); Neutrophils # (auto) 2.4 uL; Neutrophils % (auto) 76.5 % (37.0-80.0); Platelet Count (auto) 216 10^3/uL (140-450); Red Blood Cells 3.71 10^6/uL (4.0-5.20); Red Cell Distribution Width 14.7 % (11.8-14.3); White Blood Cell 3.1 10^3/uL (4.4-10.8)
[2018-03-23 11:41] LABS: Calcium 8.2 mg/dL (8.5-10.1)
[2018-03-23 13:00] VITALS: BP 109/52
[2018-03-23] MEDS ORDERED: VANCOMYCIN PER PHARMACY 0 MG IV SCH (14:45)
[2018-03-23] MEDS: diphenhdrAMINE HCL 50 MG/1 ML VL IV PRN (14:57)
[2018-03-23] MEDS ORDERED: MEROPENEM 500mg/10ml IVPUSH 10 ML IV SCH (16:00)
[2018-03-23 17:00] VITALS: BP 136/83
[2018-03-23] MEDS: VANCOMYCIN 1,250 MG in D5W 5% 250 ML IV SCH (17:16)
[2018-03-23] MEDS ORDERED: fentaNYL 100MCG/HR 100 MCG/HR PAT TD SCH (19:15)
[2018-03-23] MEDS: CEFEPIME HYDROCHLORIDE 2 GM in SODIUM CHL 0.9% 50 ML IV SCH (19:34)
[2018-03-23] MEDS ORDERED: fentaNYL 75MCG/HR 75 MCG/HR PAT TD SCH (19:45)
[2018-03-23 20:00] VITALS: BP 113/66
[2018-03-23] MEDS: DONEPEZIL HYDROCHLORIDE 5 MG TAB PO SCH (21:44)
[2018-03-23] MEDS: ATORVASTATIN 20 MG TAB PO SCH (21:44)
[2018-03-23 22:00] VITALS: BP 113/66
[2018-03-24] MEDS ORDERED: FENT75DI2 TD (01:25)
[2018-03-24] MEDS: VANCOMYCIN 1,250 MG in D5W 5% 250 ML IV SCH (04:00)
[2018-03-24 04:53] VITALS: BP 110/64
[2018-03-24] MEDS: CEFEPIME HYDROCHLORIDE 2 GM in SODIUM CHL 0.9% 50 ML IV SCH (05:49)
[2018-03-24] MEDS: InsuLIN REG 1unit/0.01ml Soln (100units/ml) SC SCH ×4 (06:02→22:00)
[2018-03-24] MEDS: ACCU-CHEK COMFORT CURVE STRIP VI SCH ×4 (06:02→22:00)
[2018-03-24] MEDS: glipiZIDE 5 MG TAB PO SCH ×2 (06:03→17:41)
[2018-03-24 07:08] LABS: Basophils # (auto) 0 uL; Basophils % (auto) 0.5 % (0.0-2.0); Eosinophils # (auto) 0.1 uL; Eosinophils % (auto) 2.9 % (0.0-7.0); Hematocrit 34.4 % (36.0-46.0); Hemoglobin 11.6 g/dL (12.2-16.2); Lymphocytes # (auto) 0.4 uL; Lymphocytes % (auto) 15.7 % (10.0-50.0); Mean Corpuscular Hemoglobin 29.5 pg (28.0-32.0); Mean Corpuscular Hgb Conc. 33.6 g/dL (32.0-36.0); Mean Corpuscular Volume 87.7 fL (80.0-100.0); Monocytes # (auto) 0.3 uL; Monocytes % (auto) 11.3 % (0.0-12.0); Neutrophils % (auto) 69.6 % (37.0-80.0); Nucleated Red Blood Cells % 0.1 %; Platelet Count (auto) 224 10^3/uL (140-450); Red Blood Cells 3.92 10^6/uL (4.0-5.20); Red Cell Distribution Width 14.5 % (11.8-14.3); White Blood Cell 2.8 10^3/uL (4.4-10.8)
[2018-03-24 07:25] LABS: BUN/Creatinine Ratio 19.5; Calcium 8.4 mg/dL (8.5-10.1); Potassium 3.6 mmol/L (3.5-5.1)
[2018-03-24 08:25] VITALS: BP 130/67
[2018-03-24] MEDS: ENOXAPARIN SOD 40 MG/0.4 ML SYRINGE SC SCH ×2 (10:55→20:23)
[2018-03-24] MEDS: TECFIDERA 240 MG PO SCH ×2 (10:55→20:21)
[2018-03-24] MEDS: MULTIPLE VITAMINS W/ MINERALS TAB PO SCH ×2 (10:55→20:23)
[2018-03-24] MEDS: FAMOTIDINE 20 MG TAB PO SCH ×2 (10:56→20:22)
[2018-03-24] MEDS: METOPROLOL TARTRATE 25 MG TAB PO SCH ×2 (10:56→20:30)
[2018-03-24] MEDS: CLOPIDOGREL BISULFATE 75 MG TAB PO SCH (10:57)
[2018-03-24] MEDS: LISINOPRIL 5 MG TAB PO SCH (10:57)
[2018-03-24] MEDS: ASCORBIC ACID 500 MG TAB PO SCH ×2 (10:57→20:23)
[2018-03-24] MEDS: SODIUM CHLORIDE 0.9% 1,000 ML IV SCH (10:58)
[2018-03-24] MEDS ORDERED: FLORASTOR (S. BOULARDII) 250 MG CAP PO ONE (11:26)
[2018-03-24] MEDS ORDERED: SACC250C PO (11:29)
[2018-03-24 12:35] VITALS: BP 135/63
[2018-03-24] MEDS: diphenhdrAMINE HCL 50 MG/1 ML VL IV PRN ×2 (12:38→20:30)
[2018-03-24] MEDS: MEROPENEM 1gm/20ml IVPUSH 20 ML IV SCH ×2 (14:00→20:20)
[2018-03-24 16:42] VITALS: BP 131/79
[2018-03-24] MEDS: HYDROcodone-ACET 5/325MG TAB PO PRN ×2 (17:58→22:27)
[2018-03-24] MEDS: DONEPEZIL HYDROCHLORIDE 5 MG TAB PO SCH (20:25)
[2018-03-24] MEDS: ATORVASTATIN 20 MG TAB PO SCH (20:27)
[2018-03-25 04:45] VITALS: BP 109/53
[2018-03-25] MEDS: MEROPENEM 1gm/20ml IVPUSH 20 ML IV SCH ×2 (05:12→15:21)
[2018-03-25] MEDS: ACCU-CHEK COMFORT CURVE STRIP VI SCH ×3 (05:12→17:07)
[2018-03-25] MEDS: InsuLIN REG 1unit/0.01ml Soln (100units/ml) SC SCH ×3 (05:17→17:00)
[2018-03-25] MEDS: glipiZIDE 5 MG TAB PO SCH ×2 (05:17→17:00)
[2018-03-25 06:09] LABS: Basophils # (auto) 0 uL; Basophils % (auto) 0.7 % (0.0-2.0); Eosinophils # (auto) 0.1 uL; Eosinophils % (auto) 4.2 % (0.0-7.0); Hematocrit 34.7 % (36.0-46.0); Hemoglobin 11.7 g/dL (12.2-16.2); Lymphocytes # (auto) 0.5 uL; Lymphocytes % (auto) 20.4 % (10.0-50.0); Mean Corpuscular Hgb Conc. 33.6 g/dL (32.0-36.0); Mean Corpuscular Volume 89.2 fL (80.0-100.0); Monocytes # (auto) 0.3 uL; Monocytes % (auto) 12.8 % (0.0-12.0); Neutrophils # (auto) 1.4 uL; Neutrophils % (auto) 61.9 % (37.0-80.0); Nucleated Red Blood Cells % 0.1 %; Platelet Count (auto) 190 10^3/uL (140-450); Red Blood Cells 3.89 10^6/uL (4.0-5.20); Red Cell Distribution Width 14.7 % (11.8-14.3); White Blood Cell 2.3 10^3/uL (4.4-10.8)
[2018-03-25 06:19] LABS: Calcium 8.5 mg/dL (8.5-10.1); Potassium 4.3 mmol/L (3.5-5.1)
[2018-03-25 09:00] VITALS: BP 108/78
[2018-03-25] MEDS ORDERED: FLORASTOR (S. BOULARDII) 250 MG CAP PO SCH (10:00)
[2018-03-25] MEDS: TECFIDERA 240 MG PO SCH (10:02)
[2018-03-25] MEDS: METOPROLOL TARTRATE 25 MG TAB PO SCH (10:04)
[2018-03-25] MEDS: FAMOTIDINE 20 MG TAB PO SCH (10:05)
[2018-03-25] MEDS: CLOPIDOGREL BISULFATE 75 MG TAB PO SCH (10:05)
[2018-03-25] MEDS: MULTIPLE VITAMINS W/ MINERALS TAB PO SCH (10:05)
[2018-03-25] MEDS: ASCORBIC ACID 500 MG TAB PO SCH (10:06)
[2018-03-25] MEDS: HYDROcodone-ACET 5/325MG TAB PO PRN ×2 (10:07→17:07)
[2018-03-25] MEDS: LISINOPRIL 5 MG TAB PO SCH (10:07)
[2018-03-25] MEDS: ENOXAPARIN SOD 40 MG/0.4 ML SYRINGE SC SCH (10:08)
[2018-03-25 13:00] VITALS: BP 97/54
[2018-03-25 17:00] VITALS: BP 97/50
== END 2018-03-25 18:30 | disposition home health service (06) | DRG 463 ==
LOC: ER 14:15 → EDBD 14:15 → OVERFLOW 14:16 → WEST WING 22:50
PROVIDERS: ADMIT Nurse Practitioner; ATTEND Internal Medicine
DX: N30.90 Cystitis, unspecified without hematuria (principal); G82.20 Paraplegia, unspecified; E44.0 Moderate protein-calorie malnutrition; F03.90 Unspecified dementia, unspecified severity, without behavioral disturbance, psychotic disturbance, mood disturbance, and anxiety; G35 Multiple sclerosis; Z68.43 Body mass index [BMI] 50.0-59.9, adult; B95.2 Enterococcus as the cause of diseases classified elsewhere; E11.9 Type 2 diabetes mellitus without complications; B96.5 Pseudomonas (aeruginosa) (mallei) (pseudomallei) as the cause of diseases classified elsewhere; K21.9 Gastro-esophageal reflux disease without esophagitis; F17.200 Nicotine dependence, unspecified, uncomplicated; E78.5 Hyperlipidemia, unspecified; E66.9 Obesity, unspecified; I10 Essential (primary) hypertension; Z99.3 Dependence on wheelchair; Z82.49 Family history of ischemic heart disease and other diseases of the circulatory system; Z83.3 Family history of diabetes mellitus
CPT/HCPCS: 36415; 51702; 71045; 80048; 80053; 81001; 82962; 83605; 83735; 83880; 84484; 85025; 85610; 85730; 87040; 87086; 87088; 87186; 93005; 96361; 96374; 96375; 96379; J1335; J2405; J7060

== ENCOUNTER 2021-01-05 14:59 | Emergency (ER) | payer MEDICAID ==
[~2021-01-05] VITALS: Ht 167.6 cm; Wt 145.1 kg
[~2021-01-05 14:59] MED LIST changes: +CHOL20007 PO; -CLOP75TA28 PO; +CYA100I IM; -DIME240C OR; +DIME240C PO; +DOCU100T15 PO; -FAM20T PO; +FAMO20TA10 PO; +FERR-20 PO; +FOLI1TAB6 PO; +FURO20TA3 PO; -GLIP-116 PO; +GLIP10TA9 PO; +IBUP400T22 PO; -LISI2.5T47 PO; +MERO1INJ32 IV; -MET25T PO; +TEMA15CA PO; +VAN1PBAE IV
[2021-01-05 15:28] LABS: Basophils # (auto) 0 10 ^3/uL (0-0.2); Basophils % (auto) 0.3 % (0.0-2.0); Eosinophils # (auto) 0 10 ^3/uL (0-0.8); Eosinophils % (auto) 0.9 % (0.0-7.0); Hematocrit 41.4 % (36.0-46.0); Hemoglobin 14.1 g/dL (12.2-16.2); Lymphocytes # (auto) 0.2 10 ^3/uL (0.4-5.4); Lymphocytes % (auto) 4.5 % (10.0-50.0); Mean Corpuscular Hgb Conc. 34.1 g/dL (32.0-36.0); Mean Corpuscular Volume 90.8 fL (80.0-100.0); Monocytes # (auto) 0.4 10 ^3/uL (0-1.3); Monocytes % (auto) 8.1 % (0.0-12.0); Neutrophils # (auto) 4.5 10 ^3/uL (1.6-8.6); Neutrophils % (auto) 86.2 % (37.0-80.0); Nucleated Red Blood Cells % 0.1 %; Red Blood Cells 4.56 10^6/uL (4.0-5.20); Red Cell Distribution Width 13.9 % (11.8-14.3); White Blood Cell 5.2 10^3/uL (4.4-10.8)
[2021-01-05 15:46] LABS: Anion Gap 9 (5-15); Blood Urea Nitrogen 13 mg/dL (7-18); Calcium 8.6 mg/dL (8.5-10.1); Carbon Dioxide 24 mmol/L (21-32); Chloride 96 mmol/L (98-107); Glucose 376 mg/dL (74-106); Potassium 4.4 mmol/L (3.5-5.1); Sodium 129 mmol/L (136-145)
[2021-01-05 15:49] LABS: Alanine Aminotransferase 27 U/L (13-56); Alkaline Phosphatase 99 U/L (45-117); Aspartate Aminotransferase 31 U/L (15-37); BUN/Creatinine Ratio 15.9; Bilirubin, Total 0.6 mg/dL (0.2-1.0); GFR African American 91 mL/min; GFR Non-African American 76 mL/min; Total Protein 7.9 g/dL (6.4-8.2)
[2021-01-05 16:00] VITALS: BP 127/60
[2021-01-05] MEDS ORDERED: cefTRIAXone 1GM/50ML D5W 50 ML IV ONE (16:45)
[2021-01-05] MEDS ORDERED: SODIUM CHLORIDE 0.9% 1,000 ML IV ONE ×2 (16:45)
== END 2021-01-05 18:15 | disposition home or self-care (01) ==
LOC: ER 14:59
DX: G35 Multiple sclerosis (principal); N39.0 Urinary tract infection, site not specified; E11.65 Type 2 diabetes mellitus with hyperglycemia; E87.1 Hypo-osmolality and hyponatremia; E44.1 Mild protein-calorie malnutrition; K21.9 Gastro-esophageal reflux disease without esophagitis; E78.5 Hyperlipidemia, unspecified; I10 Essential (primary) hypertension; Z68.43 Body mass index [BMI] 50.0-59.9, adult; Z88.0 Allergy status to penicillin; Z88.1 Allergy status to other antibiotic agents; Z88.6 Allergy status to analgesic agent
CPT/HCPCS: 36415; 70450; 74176; 80053; 84484; 85025; 85049; 93005; 96365; 99285; J0696; J7030

== ENCOUNTER 2022-07-31 21:34 | Inpatient (IN) | payer MEDICAID ==
[~2022-07-31] VITALS: Ht 162.6 cm; Wt 95.6 kg
[2022-07-31] MEDS ORDERED: ETOMIDATE (2MG/ML) 20ML VIAL IV ONE ×2 (21:40→23:30)
[2022-07-31] MEDS ORDERED: ROCURONIUM 10MG/ML 10ML VIAL IV ONE ×2 (21:40→23:30)
[2022-07-31] MEDS ORDERED: MIDAZOLAM HCL 2MG/2ML 2ml VIAL (1mg/ml) ONE (21:43)
[2022-07-31] MEDS ORDERED: MIDAZOLAM DRIP 50 mg/50mL 50 ML IV ONE (21:44)
[2022-07-31 21:48] VITALS: BP 77/30
[2022-07-31] MEDS: MIDAZOLAM DRIP 50 mg/50mL 50 ML IV SCH (21:50)
[2022-07-31] MEDS ORDERED: SODIUM BICARBONATE 8.4% INJ 50ML SYRINGE ONE (21:51)
[2022-07-31] MEDS ORDERED: CALCIUM CHLOR(10%) 100MG/ML 10ML SYRINGE IV ONE (21:51)
[2022-07-31] MEDS: NOREPINEPHRINE 8 MG/250ML KIT 250 ML IV SCH (21:52)
[2022-07-31] MEDS ORDERED: NOREPINEPHRINE 8 MG/250ML KIT 250 ML IV ONE ×2 (21:54→21:58)
[2022-07-31] MEDS ORDERED: IOHEXOL 350 MG/ML 100ML IJ ONE (21:56)
[2022-07-31] MEDS ORDERED: SODIUM BICARBONATE 8.4 % INJ 50ML VIAL IV ONE (22:00)
[2022-07-31] MEDS ORDERED: CALCIUM CHL 100MG/ML 1,000 MG in D5W 5% 100 ML IV ONE (22:00)
[2022-07-31] MEDS ORDERED: SODIUM CHLORIDE 0.9% 1,000 ML IV ONE (22:00)
[2022-07-31] MEDS ORDERED: VANCOMYCIN 1GM/250ML 250 ML IV ONE (22:30)
[2022-07-31] MEDS ORDERED: cefTRIAXone 1GM/50ML D5W 50 ML IV ONE (22:30)
[2022-07-31] MEDS ORDERED: PIPERACILLIN-TAZOB 3.375GM 100 ML IV ONE (22:30)
[2022-07-31 22:39] LABS: Lymphocytes # (auto) 0.2 10 ^3/uL (0.4-5.4); Nucleated Red Blood Cells % 0.1 %; Red Blood Cells 2.88 10^6/uL (4.0-5.20)
[2022-07-31 22:40] LABS: Basophils # (auto) 0 10 ^3/uL (0-0.2); Basophils % (auto) 0.3 % (0.0-2.0); Eosinophils # (auto) 0.5 10 ^3/uL (0-0.8); Hematocrit 30.3 % (36.0-46.0); Hemoglobin 8.8 g/dL (12.2-16.2); Lymphocytes % (auto) 1.9 % (10.0-50.0); Mean Corpuscular Hemoglobin 30.6 pg (28.0-32.0); Mean Corpuscular Hgb Conc. 29.1 g/dL (32.0-36.0); Mean Corpuscular Volume 105.2 fL (80.0-100.0); Monocytes # (auto) 0.5 10 ^3/uL (0-1.3); Monocytes % (auto) 5.1 % (0.0-12.0); Neutrophils # (auto) 8.9 10 ^3/uL (1.6-8.6); Neutrophils % (auto) 87.7 % (37.0-80.0); Red Cell Distribution Width 16.8 % (11.8-14.3); White Blood Cell 10.2 10^3/uL (4.4-10.8)
[2022-07-31 22:47] LABS: INR 1.15 (0.9-1.15); Partial Thromboplastin Time 32.8 sec (24.6-33.4)
[2022-07-31 22:53] LABS: Alanine Aminotransferase 15 U/L (13-56); Albumin 1.6 g/dL (3.4-5.0); Anion Gap 24 (5-15); Blood Alcohol < 3.0 mg/dL (0-5); Calcium 7.6 mg/dL (8.5-10.1); Carbon Dioxide 14 mmol/L (21-32); Chloride 97 mmol/L (98-107); Magnesium 3.3 mg/dL (1.6-2.6); Potassium 4.7 mmol/L (3.5-5.1); Sodium 135 mmol/L (136-145)
[2022-07-31 22:55] LABS: Aspartate Aminotransferase 14 U/L (15-37); GFR African American 17 mL/min; GFR Non-African American 14 mL/min; Total Protein 5.1 g/dL (6.4-8.2)
[2022-07-31 23:02] LABS: Alkaline Phosphatase 217 U/L (45-117); Bilirubin, Total 0.8 mg/dL (0.2-1.0)
[2022-07-31 23:04] LABS: Glucose 1106 mg/dL (74-106)
[2022-07-31 23:05] LABS: BUN/Creatinine Ratio 49.6; Blood Urea Nitrogen 172 mg/dL (7-18)
[2022-07-31] MEDS ORDERED: MIDAZOLAM HCL 5 MG/ML-1ML VIAL IV ONE (23:30)
[2022-08-01] VITALS (53 sets, daily range): BP systolic 62–109; BP diastolic 21–55
[2022-08-01] MEDS ORDERED: AZITHROMYCIN 500MG/ 250ML 250 ML IV ONE
[2022-08-01] MEDS ORDERED: InsuLIN REG 1unit/0.01ml Soln (100units/ml) ONE (00:20)
[2022-08-01] MEDS: ACCU-CHEK COMFORT CURVE STRIP VI SCH ×15 (00:26→22:59)
[2022-08-01 00:51] LABS: Urine Bacteria FEW /hpf (None Seen); Urine Blood 3+ /uL (Negative); Urine Hyaline Cast MOD /lpf (0 - 2); Urine Mucus FEW (None Seen); Urine Specific Gravity 1.018 (1.001-1.035); Urine WBC 106 /hpf (0 - 5)
[2022-08-01 00:55] LABS: Amphetamine Screen, Urine NEGATIVE (NEGATIVE); Barbiturate Scree,Urine NEGATIVE (NEGATIVE); Benzodiazephine Screen, Urine POSITIVE (NEGATIVE); Cannabinoid Screen, Urine NEGATIVE (NEGATIVE); Cocaine Screen, Urine NEGATIVE (NEGATIVE); Opiate Scree,Urine NEGATIVE (NEGATIVE); Phencyclidine Screen, Urine NEGATIVE (NEGATIVE)
[2022-08-01] MEDS ORDERED: DEXTROSE (50%) 50ML SYRG IV PRN ×2 (01:00)
[2022-08-01] MEDS ORDERED: levoFLOXacin 250MG 50 ML IV ONE (01:00)
[2022-08-01] MEDS ORDERED: NITROGLYCERIN 0.4 MG SL TAB SL PRN (01:00)
[2022-08-01] MEDS ORDERED: SODIUM BICARBONATE 50ML VIAL 100 ML in SOD CHL 0.45% 1,000 ML IV ONE (01:00)
[2022-08-01] MEDS ORDERED: MORPHINE SULFATE INJ 2 MG/ml SYRG IV PRN (01:00)
[2022-08-01] MEDS ORDERED: ONDANSETRON HCL 4 MG/2 ML VIAL IV PRN (01:00)
[2022-08-01] MEDS ORDERED: ACETAMINOPHEN 325 MG TAB PO PRN (01:00)
[2022-08-01] MEDS ORDERED: InsuLIN R (HUMAN) 100 UNITS in SODIUM CHL 0.9% 99 ML IV SCH ×3 (01:00)
[2022-08-01] MEDS ORDERED: SODIUM BICARBONATE 8.4 % INJ 50ML VIAL IV ONE ×2 (01:49→16:15)
[2022-08-01] MEDS: SODIUM CHLORIDE 0.9% 1,000 ML IV SCH ×5 (02:00→19:20)
[2022-08-01] MEDS: InsuLIN R (HUMAN) 100 UNITS in SODIUM CHL 0.9% 99 ML IV SCH (03:41)
[2022-08-01] MEDS ORDERED: SODIUM CHLORIDE 0.9% 1,000 ML IV SCH (04:00)
[2022-08-01 04:26] LABS: Calcium 7.8 mg/dL (8.5-10.1); Potassium 4.6 mmol/L (3.5-5.1)
[2022-08-01 04:28] LABS: BUN/Creatinine Ratio 45.7
[2022-08-01 06:58] LABS: Calcium 7.7 mg/dL (8.5-10.1); Potassium 4.5 mmol/L (3.5-5.1)
[2022-08-01 07:03] LABS: BUN/Creatinine Ratio 45.5
[2022-08-01] MEDS: MIDAZOLAM DRIP 50 mg/50mL 50 ML IV SCH ×2 (08:29→18:01)
[2022-08-01] MEDS: PANTOPRAZOLE 40 MG/10 ML VIAL INJ IV SCH (10:00)
[2022-08-01] MEDS ORDERED: DOPamine 1600MCG/ML D5W 250 ML IV ONE (10:21)
[2022-08-01] MEDS: DOPamine 1600MCG/ML D5W 250 ML IV SCH ×3 (10:56→22:00)
[2022-08-01] MEDS ORDERED: PHENYLEPHRINE IV 250 ML IV SCH (12:30)
[2022-08-01 13:22] LABS: Potassium 3.7 mmol/L (3.5-5.1)
[2022-08-01 13:29] LABS: BUN/Creatinine Ratio 45.2; Calcium 7.2 mg/dL (8.5-10.1)
[2022-08-01] MEDS: EPINEPHrine HCL 250 ML IV SCH ×2 (14:45→22:00)
[2022-08-01 15:30] LABS: Hematocrit 28.1 % (36.0-46.0); Hemoglobin 9.2 g/dL (12.2-16.2); Mean Corpuscular Hemoglobin 30.6 pg (28.0-32.0); Mean Corpuscular Hgb Conc. 32.6 g/dL (32.0-36.0)
[2022-08-01 15:31] LABS: Mean Corpuscular Volume 93.7 fL (80.0-100.0); Red Blood Cells 2.99 10^6/uL (4.0-5.20); Red Cell Distribution Width 14.9 % (11.8-14.3); White Blood Cell 22.8 10^3/uL (4.4-10.8)
[2022-08-01] MEDS: levoFLOXacin 250MG 50 ML IV SCH (15:40)
[2022-08-01] MEDS: PHENYLEPHRINE INJ 80 MG in SODIUM CHL 0.9% 242 ML IV SCH ×2 (15:52→22:00)
[2022-08-01 16:03] LABS: INR 1.17 (0.9-1.15)
[2022-08-01 16:36] LABS: Basophils % (manual) 0 (0.0-2.0); Blast Cells 0; Eosinophils % (manual) 0 (0-7); Metamyelocytes % 0; Myelocytes % 0; Promyelocytes % 0; Reactive Lymphocytes 0
[2022-08-01] MEDS: SODIUM BICARBONATE 8.4 % INJ 50ML VIAL IV ONE ×2 (16:37→16:38)
[2022-08-01 16:53] LABS: Band Neutrophils % (manual) 18; Lymphocytes % (manual) 2 (10.0-50.0); Monocytes % (manual) 4 (0-12)
[2022-08-01] MEDS ORDERED: VASOPRESSIN 20 UNITS in SODIUM CHL 0.9% 99 ML IV SCH (19:30)
[2022-08-01] MEDS: NOREPINEPHRINE 8 MG/250ML KIT 250 ML IV SCH ×2 (19:35→20:00)
[2022-08-01 19:52] LABS: BUN/Creatinine Ratio 49.3; Calcium 6.8 mg/dL (8.5-10.1); Potassium 3.8 mmol/L (3.5-5.1)
[2022-08-01] MEDS: VASOPRESSIN 20 UNITS in SODIUM CHL 0.9% 99 ML IV SCH (21:50)
[2022-08-02] VITALS (83 sets, daily range): BP systolic 55–211; BP diastolic 4–117
[2022-08-02] MEDS: InsuLIN R (HUMAN) 100 UNITS in SODIUM CHL 0.9% 99 ML IV SCH (00:30)
[2022-08-02] MEDS: NOREPINEPHRINE 8 MG/250ML KIT 250 ML IV SCH ×2 (00:30→05:00)
[2022-08-02] MEDS: MIDAZOLAM DRIP 50 mg/50mL 50 ML IV SCH ×3 (00:30→18:08)
[2022-08-02] MEDS: ACCU-CHEK COMFORT CURVE STRIP VI SCH ×16 (01:36→22:29)
[2022-08-02] MEDS: DOPamine 1600MCG/ML D5W 250 ML IV SCH ×6 (02:01→20:47)
[2022-08-02] MEDS: SODIUM CHLORIDE 0.9% 1,000 ML IV SCH ×2 (03:40→08:40)
[2022-08-02 04:00] LABS: Basophils # (auto) 0.1 10 ^3/uL (0-0.2); Basophils % (auto) 0.3 % (0.0-2.0); Eosinophils # (auto) 0.1 10 ^3/uL (0-0.8); Eosinophils % (auto) 0.5 % (0.0-7.0); Hematocrit 26.4 % (36.0-46.0); Hemoglobin 8.8 g/dL (12.2-16.2); Lymphocytes # (auto) 0.5 10 ^3/uL (0.4-5.4); Lymphocytes % (auto) 2.4 % (10.0-50.0); Mean Corpuscular Hemoglobin 30.8 pg (28.0-32.0); Mean Corpuscular Hgb Conc. 33.5 g/dL (32.0-36.0); Mean Corpuscular Volume 92.1 fL (80.0-100.0); Monocytes # (auto) 0.2 10 ^3/uL (0-1.3); Neutrophils # (auto) 19.3 10 ^3/uL (1.6-8.6); Red Blood Cells 2.87 10^6/uL (4.0-5.20); Red Cell Distribution Width 15.4 % (11.8-14.3); White Blood Cell 20.2 10^3/uL (4.4-10.8)
[2022-08-02 04:14] LABS: Albumin 1.1 g/dL (3.4-5.0); BUN/Creatinine Ratio 49.3; Calcium 6.5 mg/dL (8.5-10.1); Potassium 3.6 mmol/L (3.5-5.1)
[2022-08-02 04:16] LABS: Bilirubin, Total 1.6 mg/dL (0.2-1.0); Total Protein 4.7 g/dL (6.4-8.2)
[2022-08-02 04:35] LABS: Neutrophils % (auto) 95.8 % (37.0-80.0)
[2022-08-02] MEDS: PHENYLEPHRINE INJ 80 MG in SODIUM CHL 0.9% 242 ML IV SCH ×3 (05:30→20:45)
[2022-08-02] MEDS: EPINEPHrine HCL 250 ML IV SCH (05:30)
[2022-08-02] MEDS: VASOPRESSIN 20 UNITS in SODIUM CHL 0.9% 99 ML IV SCH ×2 (07:20→18:21)
[2022-08-02] MEDS ORDERED: SODIUM CHLORIDE 0.9% 1,000 ML IV SCH (09:30)
[2022-08-02] MEDS ORDERED: EPINEPHrine HCL INJECTION 16 MG in D5W 5% 234 ML IV SCH (09:30)
[2022-08-02] MEDS: levoFLOXacin 250MG 50 ML IV SCH (09:54)
[2022-08-02] MEDS: PANTOPRAZOLE 40 MG/10 ML VIAL INJ IV SCH ×2 (09:54→22:29)
[2022-08-02] MEDS: NOREPINEPHRINE BITARTRATE 32 MG in SODIUM CHL 0.9% 218 ML IV SCH (11:18)
[2022-08-02] MEDS: HYDROCORTISONE SOD SUCC 100 MG/2ML INJ VIAL IV SCH ×2 (11:20→17:39)
[2022-08-02] MEDS ORDERED: FENT25DI2 TD (16:00)
[2022-08-02] MEDS ORDERED: CYCL-839 PO (16:00)
[2022-08-02] MEDS ORDERED: DONE5TAB80 PO (16:00)
[2022-08-02] MEDS ORDERED: FUROSEMIDE 100 MG/10ML VIAL IV ONE (16:30)
[2022-08-02] MEDS: SODIUM BICARBONATE 50ML VIAL 150 ML in D5W 5% 1,000 ML IV SCH (17:09)
[2022-08-02 17:46] LABS: Cholesterol 85 mg/dL (< 200); HDL Cholesterol 9 mg/dL (40-59); LDL Cholesterol 38 mg/dL (< 100); Triglycerides 257 mg/dL (< 150)
[2022-08-02] MEDS ORDERED: Glucerna 1.2 Cal 1Liter BOTTLE GT SCH (19:15)
[2022-08-03] VITALS (51 sets, daily range): BP systolic 36–156; BP diastolic 14–124
[2022-08-03] MEDS: InsuLIN R (HUMAN) 100 UNITS in SODIUM CHL 0.9% 99 ML IV SCH ×2
[2022-08-03] MEDS: ACCU-CHEK COMFORT CURVE STRIP VI SCH ×11 (00:16→15:00)
[2022-08-03] MEDS: HYDROCORTISONE SOD SUCC 100 MG/2ML INJ VIAL IV SCH ×3 (00:16→13:16)
[2022-08-03] MEDS: DOPamine 1600MCG/ML D5W 250 ML IV SCH ×4 (01:00→11:48)
[2022-08-03 03:20] LABS: Hematocrit 20.5 % (36.0-46.0); Mean Corpuscular Hemoglobin 31.3 pg (28.0-32.0); Mean Corpuscular Hgb Conc. 32.7 g/dL (32.0-36.0); Mean Corpuscular Volume 95.7 fL (80.0-100.0); Red Blood Cells 2.15 10^6/uL (4.0-5.20); Red Cell Distribution Width 16.4 % (11.8-14.3); White Blood Cell 10.8 10^3/uL (4.4-10.8)
[2022-08-03 03:26] LABS: Hemoglobin 6.7 g/dL (12.2-16.2)
[2022-08-03 03:35] LABS: Potassium 4.2 mmol/L (3.5-5.1)
[2022-08-03 03:38] LABS: BUN/Creatinine Ratio 51.7
[2022-08-03 03:40] LABS: Bilirubin, Total 1.2 mg/dL (0.2-1.0); Total Protein 3.9 g/dL (6.4-8.2)
[2022-08-03] MEDS: SODIUM BICARBONATE 50ML VIAL 150 ML in D5W 5% 1,000 ML IV SCH (03:45)
[2022-08-03 03:49] LABS: Basophils % (manual) 0 (0.0-2.0); Blast Cells 0; Eosinophils % (manual) 0 (0-7); Metamyelocytes % 0; Myelocytes % 0; Promyelocytes % 0; Reactive Lymphocytes 0
[2022-08-03 04:00] LABS: Band Neutrophils % (manual) 6; Lymphocytes % (manual) 5 (10.0-50.0); Monocytes % (manual) 6 (0-12)
[2022-08-03] MEDS: MIDAZOLAM DRIP 50 mg/50mL 50 ML IV SCH (04:00)
[2022-08-03] MEDS: NOREPINEPHRINE BITARTRATE 32 MG in SODIUM CHL 0.9% 218 ML IV SCH (04:00)
[2022-08-03 04:18] LABS: Albumin 0.8 g/dL (3.4-5.0); Calcium 5.8 mg/dL (8.5-10.1)
[2022-08-03] MEDS ORDERED: ALBUMIN 25% 100 ML IV ONE (04:45)
[2022-08-03] MEDS: VASOPRESSIN 20 UNITS in SODIUM CHL 0.9% 99 ML IV SCH (05:00)
[2022-08-03] MEDS: PHENYLEPHRINE INJ 80 MG in SODIUM CHL 0.9% 242 ML IV SCH ×2 (05:00→12:18)
[2022-08-03] MEDS: PANTOPRAZOLE 40 MG/10 ML VIAL INJ IV SCH (09:25)
[2022-08-03] MEDS: levoFLOXacin 250MG 50 ML IV SCH (09:25)
[2022-08-03] MEDS ORDERED: SODIUM BICARBONATE 50ML VIAL 150 ML in D5W 5% 1,000 ML IV SCH ×4 (09:45)
[2022-08-03] MEDS ORDERED: ALBUMIN 25% 100 ML IV SCH ×2 (09:45)
[2022-08-03] MEDS ORDERED: MEROPENEM 1GM IVPB 100 ML IV SCH (10:36)
[2022-08-03] MEDS ORDERED: GENTAMICIN SULFATE 80 MG in D5W 5% 100 ML IV ONE (10:45)
== END 2022-08-03 18:27 | DRG 720 ==
LOC: EDUNIT# 21:34 → EDBD 21:34 → ER 21:34 → TELE 08-01 00:57 → ICU WEST 08-01 13:20
PROVIDERS: ADMIT Nurse Practitioner; ATTEND Hospitalist
PROC: 5A1945Z Respiratory Ventilation, 24-96 Consecutive Hours (ICD-10-PCS; 2022-07-31)
PROC: 0BH17EZ Insertion of Endotracheal Airway into Trachea, Via Natural or Artificial Opening (ICD-10-PCS; 2022-07-31)
PROC: 30233R1 Transfusion of Nonautologous Platelets into Peripheral Vein, Percutaneous Approach (ICD-10-PCS; 2022-08-02)
PROC: 30233N1 Transfusion of Nonautologous Red Blood Cells into Peripheral Vein, Percutaneous Approach (ICD-10-PCS; principal; 2022-08-03)
DX: A41.59 Other Gram-negative sepsis (principal); J96.01 Acute respiratory failure with hypoxia; R65.21 Severe sepsis with septic shock; G93.41 Metabolic encephalopathy; E43 Unspecified severe protein-calorie malnutrition; E11.10 Type 2 diabetes mellitus with ketoacidosis without coma; L89.154 Pressure ulcer of sacral region, stage 4; Z66 Do not resuscitate; D68.9 Coagulation defect, unspecified; Z20.822 Contact with and (suspected) exposure to COVID-19; D69.6 Thrombocytopenia, unspecified; I50.32 Chronic diastolic (congestive) heart failure; D63.8 Anemia in other chronic diseases classified elsewhere; J18.9 Pneumonia, unspecified organism; I11.0 Hypertensive heart disease with heart failure; N17.9 Acute kidney failure, unspecified; G82.20 Paraplegia, unspecified; G89.4 Chronic pain syndrome; K92.2 Gastrointestinal hemorrhage, unspecified; E66.01 Morbid (severe) obesity due to excess calories; E78.5 Hyperlipidemia, unspecified; G35 Multiple sclerosis; Z91.14 Patient's other noncompliance with medication regimen; Z88.0 Allergy status to penicillin; Z86.73 Personal history of transient ischemic attack (TIA), and cerebral infarction without residual deficits; Z74.01 Bed confinement status; Z88.1 Allergy status to other antibiotic agents; Z88.6 Allergy status to analgesic agent; Z88.5 Allergy status to narcotic agent; Z68.36 Body mass index [BMI] 36.0-36.9, adult
CPT/HCPCS: 36415; 36556; 36600; 70450; 71045; 80048; 80053; 80061; 80307; 80320; 81001; 82010; 82550; 82805; 82962; 83036; 83605; 83735; 83880; 84443; 84484; 85007; 85025; 85027; 85610; 85730; 86850; 86900; 86901; 86920; 87040; 87070; 87077; 87081; 87086; 87088; 87186; 87205; 87426; 93005; 93306; 93970; 94003; 96361; 96365; 99291; C9113; G0378; J0171; J0696; J1815; J2185; J2250; J7060; P9047